=== PATIENT | female | born 1985 | race African-American/Black ===

== ENCOUNTER 2016-06-25 07:34 | Emergency (ER) | payer OTHER ==
--- NOTE | 2016-06-25 10:34 | ER Document Report ---
ED General - General Chief Complaint: Rectal Pain Stated Complaint: RECTAL PAIN Mode of Arrival: Ambulatory Information source: Patient Notes: 31-year-old female presents with complaints of internal hemorrhoids. Patient denies any fevers or chills nausea vomiting or diarrhea. Patient also notes vaginal bleeding which has been intermittent with large clots. TRAVEL OUTSIDE OF THE [place] IN LAST 30 DAYS: No - HPI Onset: Last week Onset/Duration: Intermittent Quality of pain: Burning Severity: Mild Pain Level: 1 Associated symptoms: None Exacerbated by: Other - Bowel movements Relieved by: Denies Similar symptoms previously: No Recently seen / treated by doctor: No - Related Data Allergies/Adverse Reactions: cetirizine [From Zyrtec] Allergy (Verified 06/25/16 08:01) penicillin G Allergy (Verified 06/25/16 08:01) penicillin V Allergy (Verified 06/25/16 08:01) Penicillins Allergy (Verified 06/25/16 08:01) pseudoephedrine [From Zyrtec-D] Allergy (Verified 06/25/16 08:01) Past Medical History - Social History Smoking Status: Current Every Day Smoker Cigarette use (# per day): Yes Chew tobacco use (# tins/day): No Smoking Education Provided: No Frequency of alcohol use: Rare Drug Abuse: None Family History: Reviewed & Not Pertinent Patient has suicidal ideation: No Patient has homicidal ideation: No Neurological Medical History: Reports: Hx Migraine Endocrine Medical History: Reports: Hx Diabetes Mellitus Type 2 Renal/ Medical History: Reports: Hx Pelvic Inflammatory Disease - being treated for chlamydia now. Denies: Hx Peritoneal Dialysis Psychiatric Medical History: Reports: Hx Anxiety, Hx Depression Past Surgical History: Reports: Hx Cholecystectomy - Immunizations Immunizations up to date: Yes Hx Diphtheria, Pertussis, Tetanus Vaccination: Yes - given today Review of Systems - Review of Systems Notes: REVIEW OF SYSTEMS: CONSTITUTIONAL : Denies fever, chills, or sweats. Denies recent illness. EENT: Denies eye, ear, throat, or mouth pain or symptoms. Denies nasal or sinus congestion or discharge. Denies throat, tongue, or mouth swelling or difficulty swallowing. CARDIOVASCULAR: Denies chest pain. Denies palpitations or racing or irregular heart beat. Denies ankle edema. RESPIRATORY: Denies cough, cold, or chest congestion. Denies shortness of breath, difficulty breathing, or wheezing. GASTROINTESTINAL: Denies abdominal pain or distention. Denies nausea, vomiting , or diarrhea. Denies blood in vomitus, stools, or per rectum. Denies black, tarry stools. Denies constipation. GENITOURINARY: Denies difficulty urinating, painful urination, burning, frequency, blood in urine, or discharge. FEMALE GENITOURINARY: Admits to vaginal bleeding MUSCULOSKELETAL: Admits to hemorrhoids SKIN: Denies rash, lesions or sores. HEMATOLOGIC : Denies easy bruising or bleeding. LYMPHATIC: Denies swollen, enlarged glands. NEUROLOGICAL: Denies confusion or altered mental status. Denies passing out or loss of consciousness. Denies dizziness or lightheadedness. Denies headache. Denies weakness or paralysis or loss of use of either side. Denies problems with gait or speech. Denies sensory loss, numbness, or tingling. Denies seizures. PSYCHIATRIC: Denies anxiety or stress. Denies depression, suicidal ideation, or homicidal ideation. ALL OTHER SYSTEMS REVIEWED AND NEGATIVE. Dictation was performed using [employer] voice recognition software PHYSICAL EXAMINATION: GENERAL: Well-appearing, well-nourished and in no acute distress. HEAD: Atraumatic, normocephalic. EYES: Pupils equal round and reactive to light, extraocular movements intact, conjunctiva are normal. ENT: Nares patent, oropharynx clear without exudates. Moist mucous membranes. NECK: Normal range of motion, supple without lymphadenopathy LUNGS: Breath sounds clear to auscultation bilaterally and equal. No wheezes rales or rhonchi. HEART: Regular rate and rhythm without murmurs ABDOMEN: Soft, nontender, nondistended abdomen. No guarding, no rebound. No masses appreciated. Female : deferred Musculoskeletal: Normal range of motion, no pitting or edema. No cyanosis. With nurse in room no external hemorrhoids noted NEUROLOGICAL: Cranial nerves grossly intact. Normal speech, normal gait. Normal sensory, motor exams PSYCH: Normal mood, normal affect. SKIN: Warm, Dry, normal turgor, no rashes or lesions noted. Physical Exam - Vital signs Vitals: Temp Pulse Resp BP Pulse Ox 98.1 F 106 H 20 133/83 H 99 06/25/16 07:59 06/25/16 07:59 06/25/16 07:59 06/25/16 07:59 06/25/16 07:59 Course - Re-evaluation Re-evalutation: 06/25/16 10:55 Patient vaginal bleeding appears to be secondary to her uterine fibroids as well as a change in her control pills from 2 weeks ago, patient is in no distress does not wish to be tested for . Patient will be given lidocaine topical She is otherwise well-appearing After performing a Medical Screening Examination, I estimate there is LOW risk for ACUTE APPENDICITIS, BOWEL OBSTRUCTION, ACUTE CHOLECYSTITIS, PERFORATED DIVERTICULITIS, INCARCERATED HERNIA, PANCREATITIS, PELVIC INFLAMMATORY DISEASE, PERFORATED ULCER, ECTOPIC , or TUBO-OVARIAN ABSCESS, thus I consider the discharge disposition reasonable. Also, there is no evidence or peritonitis , sepsis, or toxicity. The patient and I have discussed the diagnosis and risks , and we agree with discharging home with close follow-up with the understanding that symptoms and presentations can change. We also discussed returning to the Emergency Department immediately if new or worsening symptoms occur. We have discussed the symptoms which are most concerning (e.g., bloody stool, fever, changing or worsening pain, vomiting) that necessitate immediate return. - Vital Signs Vital signs: Temp Pulse Resp BP Pulse Ox 98.1 F 106 H 20 133/83 H 99 06/25/16 07:59 06/25/16 07:59 06/25/16 07:59 06/25/16 07:59 06/25/16 07:59 Discharge - Discharge Clinical Impression: Internal hemorrhoid, Vagina bleeding Condition: Stable Disposition: HOME, SELF-CARE Instructions: Hemorrhoids ([facility]) Prescriptions: Polyethylene Glycol 3350 [Miralax Powder 17 gm/Packet] 1 packet PO DAILY #7 pkg Referrals: KELVIN GAYLE MD [ACTIVE STAFF] - Follow up tomorrow
[2016-06-25] MEDS ORDERED: LIDOCAINE 4% TOPICAL SOLN 50 ML TOP ONE (10:53)
[2016-06-25 11:17] VITALS: BP 144/74
== END 2016-06-25 11:15 | disposition home or self-care (01) ==
LOC: ER 07:34
DX: K64.8 Other hemorrhoids (principal); N93.8 Other specified abnormal uterine and vaginal bleeding; F17.210 Nicotine dependence, cigarettes, uncomplicated; E11.9 Type 2 diabetes mellitus without complications; Z88.0 Allergy status to penicillin; Z90.49 Acquired absence of other specified parts of digestive tract
CPT/HCPCS: 99283; J3490

== ENCOUNTER 2016-07-02 04:34 | Emergency (ER) | payer OTHER ==
[2016-07-02] MEDS ORDERED: ACETAMINOPHEN 325 MG TABLET PO ONE (04:53)
[2016-07-02] MEDS ORDERED: HYDROCODONE/ACETAMINOPHEN 5-325 MG TABLET PO ONE (05:56)
--- NOTE | 2016-07-02 08:40 | ER Document Report ---
ED GI Bleed / Rectal Pain - General Mode of Arrival: Ambulatory Information source: Patient, [facility] Records TRAVEL OUTSIDE OF THE [place] IN LAST 30 DAYS: No - HPI Patient complains to provider of: Hemorrhoids Onset: Other - 06/25/2016 Timing/Duration: Sudden, Worse Quality of pain: Sharp Associated symptoms: None. denies: Constipation Exacerbated by: Other - Bowel movements <SAMEER POSEY - Last Filed: 07/02/16 10:05> <LIZETT LONGO - Last Filed: 07/02/16 10:25> - General Chief Complaint: Rectal Pain Stated Complaint: POSSIBLE FEVER CHILLS Notes: Patient is a 31-year-old female presenting to the emergency department with chief complaint rectal pain that has worsened since the last time she came to the emergency department, 06/25/2016. Patient was told that she most likely had internal hemorrhoids the last time she came in, but now she states that it feels like there are external hemorrhoids. Patient denies any constipation or any other symptoms. Patient states that she has a history of hemorrhoids after giving . (SAMEER POSEY) - Related Data Allergies/Adverse Reactions: cetirizine [From Zyrtec] Allergy (Verified 06/25/16 08:01) penicillin G Allergy (Verified 06/25/16 08:01) penicillin V Allergy (Verified 06/25/16 08:01) Penicillins Allergy (Verified 06/25/16 08:01) pseudoephedrine [From Zyrtec-D] Allergy (Verified 06/25/16 08:01) Past Medical History - General Information source: Patient, [facility] Records - Social History Smoking Status: Current Every Day Smoker Chew tobacco use (# tins/day): No Frequency of alcohol use: Social Drug Abuse: None Family History: Reviewed & Not Pertinent Patient has suicidal ideation: No Patient has homicidal ideation: No Neurological Medical History: Reports: Hx Migraine Endocrine Medical History: Reports: Hx Diabetes Mellitus Type 2 Renal/ Medical History: Reports: Hx Pelvic Inflammatory Disease - being treated for chlamydia now. Denies: Hx Peritoneal Dialysis Psychiatric Medical History: Reports: Hx Anxiety, Hx Depression Past Surgical History: Reports: Hx Cholecystectomy - Immunizations Immunizations up to date: Yes Hx Diphtheria, Pertussis, Tetanus Vaccination: Yes - given today <SAMEER POSEY - Last Filed: 07/02/16 10:05> Review of Systems - Review of Systems Constitutional: No symptoms reported EENT: No symptoms reported Cardiovascular: No symptoms reported Respiratory: No symptoms reported Gastrointestinal: See HPI, Other - Rectal pain Genitourinary: No symptoms reported Female Genitourinary: No symptoms reported Musculoskeletal: No symptoms reported Skin: No symptoms reported Hematologic/Lymphatic: No symptoms reported Neurological/Psychological: No symptoms reported -: Yes All other systems reviewed and negative <SAMEER POSEY - Last Filed: 07/02/16 10:05> Physical Exam - General General appearance: Appears well, Alert - HEENT Head: Normocephalic, Atraumatic Eyes: Normal Pupils: PERRL - Respiratory Respiratory status: No respiratory distress Chest status: Nontender Breath sounds: Normal Chest palpation: Normal - Cardiovascular Rhythm: Regular Heart sounds: Normal auscultation Murmur: No - Abdominal Inspection: Obese Bowel sounds: Normal Tenderness: Nontender - Rectal Hemorrhoids: External - bulging abscess 2 cm x 3/4 cm, white, at the top of the anus, very tender - Back Back: Normal, Nontender - Extremities General upper extremity: Normal inspection, Nontender General lower extremity: Normal inspection, Nontender - Neurological Neuro grossly intact: Yes Cognition: Normal Sadaf Coma Scale Eye Opening: Spontaneous [place] Coma Scale Verbal: Oriented [place] Coma Scale Motor: Obeys Commands [place] Coma Scale Total: 15 Speech: Normal - Psychological Associated symptoms: Normal affect, Normal mood - Skin Skin Temperature: Warm Skin Moisture: Dry Skin Color: Normal <SAMEER POSEY - Last Filed: 07/02/16 10:05> Procedures <SAMEER POSEY - Last Filed: 07/02/16 10:05> - Incision and Drainage Buttock Time completed: 10:05 Type: Simple Anesthetic type: 1% Lidocaine mL's of anesthetic: 4 Blade size: 11 I&D procedure: Shurclens applied Incision Method: Incision made by scalpel Amount/type of drainage: 3 ml pus <LIZETT LONGO - Last Filed: 07/02/16 10:25> - Incision and Drainage Buttock Notes: 07/02/16 10:19 Irrigated with 10 mL's normal saline (LIZETT LONGO) Discharge <SAMEER POSEY - Last Filed: 07/02/16 10:05> <LIZETT LONGO - Last Filed: 07/02/16 10:25> - Discharge Clinical Impression: Abscess of buttock Condition: Stable Disposition: HOME, SELF-CARE Additional Instructions: Abscess: You have an abscess (boil). This a pus-forming infection, usually due to staph. Some boils may be left to drain on their own, but most require lancing. From the time the tender lump first appears, it may be three or four days before the abscess is ready to alix. Local heat and rest help at this stage of treatment. An antibiotic may prevent spread of the infection. Depending on the size and location of an abscess, healing can take one to four weeks. You may shower and wash the area around the incision site two or three times a day. Antibiotics may be prescribed, but are usually not necessary after an abscess has been drained. If you develop fever, chilling, worsening pain, or increasing swelling in the area, call the doctor or return immediately. TAKE THE MEDICATION PRESCRIBED. SOAK IN A WARM TUB OF WATER A FEW TIMES DAILY. FOLLOW UP WITH YOUR DOCTOR OR [facility]. RETURN TO THE EMERGENCY ROOM IF ANY NEW OR WORSENING SYMPTOMS. Prescriptions: Doxycycline Hyclate 100 mg PO BID #10 tablet Oxycodone HCl/Acetaminophen [Percocet 5-325 mg Tablet] 1 - 2 tab PO ASDIR PRN # 15 tablet PRN Reason: Referrals: [facility] [Provider Group] - Follow up as needed Scribe Attestation: 07/02/16 10:25 I personally performed the services described in the documentation, reviewed and edited the documentation which was dictated to the scribe in my presence, and it accurately records my words and actions. (LIZETT LONGO) Scribe Documentation - Scribe Written by Maeve:: Sameer Posey 07/02/2016 0840 acting as scribe for :: Igor <SAMEER POSEY - Last Filed: 07/02/16 10:05>
[2016-07-02] MEDS ORDERED: ONDANSETRON 4 MG TAB.RAPDIS PO ONE (08:41)
[2016-07-02] MEDS ORDERED: LIDOCAINE 1% INJ-PF (10 MG/ML) 30 ML SDV INJ ONE (08:41)
[2016-07-02] MEDS ORDERED: MORPHINE SULFATE 10 MG/ML INJ IM ONE (08:41)
[2016-07-02 10:42] VITALS: BP 124/71
== END 2016-07-02 10:39 | disposition home or self-care (01) ==
LOC: ER 04:34
PROC: 0H98XZZ Drainage of Buttock Skin, External Approach (ICD-10-PCS; principal; 2016-07-02)
DX: L02.31 Cutaneous abscess of buttock (principal); K62.89 Other specified diseases of anus and rectum; F17.200 Nicotine dependence, unspecified, uncomplicated
CPT/HCPCS: 99283; 96372; 87070; 87205; 87075; 87077; 87186; 10060; S0119; J3490; J2270

== ENCOUNTER 2017-03-22 18:05 | Emergency (ER) | payer OTHER, MEDICAID ==
--- NOTE | 2017-03-22 19:28 | ER Document Report ---
ED GI/ - General Chief Complaint: Vag Bleeding, +preg <12wks Stated Complaint: ABDOMINAL PAIN,VAGINAL BLEEDING Time Seen by Provider: 03/22/17 19:21 Notes: Patient is a 32-year-old female, at 5-6 weeks gestation by last menstrual period, the comes emergency department for chief complaint of 2 days of lower abdominal/pelvic cramping and today she started having vaginal bleeding and spotting. She denies any severe pain, fever, dizziness, vomiting. She denies abnormal discharge, dysuria, flank pain. Only past medical history reported is cholecystectomy. Only medication is vitamins. TRAVEL OUTSIDE OF THE [place] IN LAST 30 DAYS: No - Related Data Allergies/Adverse Reactions: cetirizine [From Zyrtec] Allergy (Verified 03/22/17 18:53) penicillin G Allergy (Verified 03/22/17 18:53) penicillin V Allergy (Verified 03/22/17 18:53) Penicillins Allergy (Verified 03/22/17 18:53) pseudoephedrine [From Zyrtec-D] Allergy (Verified 03/22/17 18:53) Past Medical History - General Information source: Patient Last Menstrual Period: 02-12-17 - Social History Smoking Status: Current Some Day Smoker Chew tobacco use (# tins/day): No Frequency of alcohol use: None Drug Abuse: None Lives with: Family Family History: Reviewed & Not Pertinent Patient has suicidal ideation: No Patient has homicidal ideation: No Neurological Medical History: Reports: Hx Migraine Endocrine Medical History: Reports: Hx Diabetes Mellitus Type 2 Renal/ Medical History: Reports: Hx Pelvic Inflammatory Disease - being treated for chlamydia now. Denies: Hx Peritoneal Dialysis Psychiatric Medical History: Reports: Hx Anxiety, Hx Depression Past Surgical History: Reports: Hx Cholecystectomy - Immunizations Immunizations up to date: Yes Hx Diphtheria, Pertussis, Tetanus Vaccination: Yes - given today Review of Systems - Review of Systems Constitutional: No symptoms reported EENT: No symptoms reported Cardiovascular: No symptoms reported Respiratory: No symptoms reported Gastrointestinal: See HPI Genitourinary: See HPI Female Genitourinary: See HPI Musculoskeletal: No symptoms reported Skin: No symptoms reported Hematologic/Lymphatic: No symptoms reported Neurological/Psychological: No symptoms reported Physical Exam - Vital signs Vitals: Temp Pulse Resp BP Pulse Ox 98.3 F 109 H 18 129/78 H 99 03/22/17 18:25 03/22/17 18:25 03/22/17 18:25 03/22/17 18:25 03/22/17 18:25 Interpretation: Normal - General General appearance: Appears well, Alert In distress: None - Alert, smiling, talkative, well-appearing - HEENT Head: Normocephalic, Atraumatic Eyes: Normal Conjunctiva: Normal Extraocular movements intact: Yes Eyelashes: Normal Pupils: PERRL Nasal: Normal Mouth/Lips: Normal Mucous membranes: Normal Pharynx: Normal Neck: Normal - Respiratory Respiratory status: No respiratory distress Chest status: Nontender Breath sounds: Normal. No: Decreased air movement, Wheezing Chest palpation: Normal - Cardiovascular Rhythm: Regular. No: Tachycardia Heart sounds: Normal auscultation, S1 appreciated, S2 appreciated Murmur: No - Abdominal Inspection: Normal Distension: No distension Bowel sounds: Normal Tenderness: Tender - There is some tenderness over the suprapubic area, mild, no guarding, abdomen soft and benign otherwise. No: McBurney's point, Hudson's sign, Guarding - Back Back: Normal, Nontender. No: Tender, CVA tenderness - Extremities General upper extremity: Normal inspection, Nontender, Normal color, Normal ROM , Normal temperature General lower extremity: Normal inspection, Nontender, Normal color, Normal ROM , Normal temperature, Normal weight bearing. No: Tom's sign - Neurological Neuro grossly intact: Yes Cognition: Normal Orientation: AAOx4 [place] Coma Scale Eye Opening: Spontaneous [place] Coma Scale Verbal: Oriented Sadaf Coma Scale Motor: Obeys Commands Sadaf Coma Scale Total: 15 Speech: Normal Motor strength normal: LUE, RUE, LLE, RLE Sensory: Normal - Psychological Associated symptoms: Normal affect, Normal mood - Skin Skin Temperature: Warm Skin Moisture: Dry Skin Color: Normal Course - Re-evaluation Re-evalutation: Patient is well-appearing, she is denying any current complaints, vital signs unremarkable, on my examination patient does not have any tachycardia. No hypotension or fever. Abdominal exam does show some suprapubic tenderness but no guarding, unremarkable exam otherwise. CBC shows mild leukocytosis, chemistry generally unremarkable, blood type is A+ , hCG is elevated as expected. Ultrasound showing what appears to be early intrauterine . No obvious abnormalities at this time. Discussed with patient. Discussed that this still could be early miscarriage although this needs to be trended. Patient will be prescribed a repeat beta-hCG which she is to get in 2-3 days, patient states she has already established follow-up with OB /[facility]. Urinalysis showing infection. Culture placed. Placing on Keflex. Patient continues to be well-appearing on reexamination, asking to leave. Discharged with all instructions and with return precautions. Patient states understanding and agreement. - Vital Signs Vital signs: Temp Pulse Resp BP Pulse Ox 98.5 F 101 H 18 117/99 H 98 03/22/17 22:23 03/22/17 22:23 03/22/17 22:23 03/22/17 22:23 03/22/17 22:23 - Laboratory Result Diagrams: 03/22/17 19:45 Laboratory results interpreted by me: 03/22/17 03/22/17 03/22/17 18:50 19:45 19:45 WBC 12.8 H Absolute Neutrophils 8.8 H Beta HCG, Quant 47530.00 H Urine Protein 100 H Urine Blood LARGE H Ur Leukocyte Esterase LARGE H Discharge - Discharge Clinical Impression: Vaginal bleeding affecting early Abdominal pain Qualifiers: Abdominal location: lower abdomen, unspecified Qualified Code(s): R10.30 - Lower abdominal pain, unspecified Condition: Stable Disposition: HOME, SELF-CARE Additional Instructions: Your ultrasound shows a in the uterus, no additional details identified at this time. The exact cause of your bleeding is uncertain, please follow-up precautions including no lifting, running, jumping, or intercourse until cleared by [facility]. You have been given a prescription to have a 2-3 day repeat hormone (beta-hCG) test performed to help monitor this . Call the number to have this test time confirmed to be performed. Follow-up closely with [facility] for additional evaluation and treatment. You have a urinary tract infection, please take the Keflex antibiotics as prescribed to completion. Take the Zofran if needed for nausea. Return if you worsen including fever, vomiting, severe abdominal pain, heavy bleeding, passing out, or any other concerning symptoms. Prescriptions: Cephalexin Monohydrate [Keflex 500 mg Capsule] 500 mg PO QID #20 capsule Ondansetron [Zofran Odt 4 mg Tablet] 1 - 2 tab PO Q4H PRN #20 tab.rapdis PRN Reason: For Nausea/Vomiting Forms: Follow-Up Laboratory Testing
[2017-03-22 19:50] LABS: AMORPHOUS SEDIMENT,URINE TRACE /HPF; APPEARANCE,URINE CLOUDY; BILIRUBIN,URINE NEGATIVE (NEGATIVE); GLUCOSE, URINE NEGATIVE (NEGATIVE); KETONES,URINE NEGATIVE (NEGATIVE); LEUKOCYTE ESTERASE,URINE LARGE (NEGATIVE); NITRITE,URINE NEGATIVE (NEGATIVE); PROTEIN,URINE 100 mg/dL (NEGATIVE); URINE SPECIFIC GRAVITY 1.028; UROBILINOGEN,URINE NEGATIVE mg/dL (<2.0)
[2017-03-22 20:00] LABS: ABSOLUTE BASOPHILS # (AUTO) 0.1 10^3/uL (0.0-0.2); ABSOLUTE EOSINOPHILS # (AUTO) 0.2 10^3/uL (0.0-0.6); ABSOLUTE MONOCYTES (AUTO) 0.7 10^3/uL (0.1-1.4); ABSOLUTE NEUT (AUTO) 8.8 10^3/uL (1.7-8.2); BASOPHILS % (AUTO) 0.7 % (0-2); EOSINOPHILS % (AUTO) 1.5 % (0-6); HEMATOCRIT 38.2 % (36.0-47.0); HEMOGLOBIN 13.2 g/dL (12.0-15.5); HGB HCT DIFFERENCE 1.4; LYMPHOCYTES % (AUTO) 23.5 % (13-45); MEAN CORPUSCULAR HEMOGLOBIN 29.8 pg (27.0-33.4); MEAN CORPUSCULAR HGB CONC 34.5 g/dL (32.0-36.0); MEAN CORPUSCULAR VOLUME 87 fl (80-97); MONOCYTES % (AUTO) 5.6 % (3-13); RED BLOOD COUNT 4.42 10^6/uL (3.72-5.28); RED CELL DISTRIBUTION WIDTH 13.3 % (11.5-14.0); SEGMENTED NEUTROPHILS % (AUTO) 68.7 % (42-78); WHITE BLOOD COUNT 12.8 10^3/uL (4.0-10.5)
--- NOTE | 2017-03-22 21:18 | RADIOLOGY REPORT (SQ) ---
EXAM DESCRIPTION: U/S OB TRANSVAGINAL W/O DOP COMPLETED DATE/TIME: 03/22/2017 9:01 pm REASON FOR STUDY: +HCG, pelvic pain, vaginal bleeding COMPARISON: None. TECHNIQUE: Transvaginal static and realtime grayscale images acquired of the pelvis. Additional carrie cted spectral and color Doppler images recorded. All images stored on PACs. bHCG: Not available. LIMITATIONS: None. FINDINGS: UTERUS: No masses. No anomalies. GESTATIONAL SAC: Intrauterine gestational sac. Measurements correspond to a 6 week 5 day gestation. YOLK SAC: Yes. POLE: No. RIGHT ADNEXA: Normal ovary with normal vascular flow. No adnexal free fluid. No adnexal masses. LEFT ADNEXA: Normal ovary with normal vascular flow. No adnexal free fluid. No adnexal masses. FREE FLUID: None. OTHER: No other significant finding. IMPRESSION: POSSIBLE EARLY INTRAUTERINE . BHCG LEVEL NOT AVAILABLE FOR CORRELATION WITH US FINDINGS. CONSIDER F/U BHCG AND/OR ULTRASOUND FOR VERIFICATION AND TO EXCLUDE ECTOPIC . Trimester of : First - 0 to 13 weeks. TECHNICAL DOCUMENTATION: JOB ID: [id number] [employer]- All Rights Reserved
[2017-03-22] MEDS ORDERED: ONDANSETRON ODT 4 MG TAB (6 TAB/DSPK) PO PRN (22:07)
[2017-03-22] MEDS ORDERED: CEPHALEXIN 500 MG CAPSULE PO ONE (22:07)
[2017-03-22 22:24] VITALS: BP 117/99
== END 2017-03-22 22:32 | disposition home or self-care (01) ==
LOC: ER 18:05
DX: O46.91 Antepartum hemorrhage, unspecified, first trimester (principal); Z3A.01 Less than 8 weeks gestation of pregnancy; R10.30 Lower abdominal pain, unspecified; R10.2 Pelvic and perineal pain; F17.200 Nicotine dependence, unspecified, uncomplicated
CPT/HCPCS: 36415; 76817; 81001; 84702; 85025; 86900; 86901; 87086; 99284

== ENCOUNTER 2017-06-11 18:26 | Emergency (ER) | payer OTHER, MEDICAID ==
--- NOTE | 2017-06-11 19:00 | ER Document Report ---
ED Medical Screen (RME) - General Chief Complaint: Flu Symptoms Stated Complaint: FLU SYMPTOMS Time Seen by Provider: 06/11/17 18:55 Mode of Arrival: Ambulatory Information source: Patient TRAVEL OUTSIDE OF THE [place] IN LAST 30 DAYS: No - HPI Patient complains to provider of: flu symptoms Onset: This morning - pt. started earlier today with cough, congestion, generalized arthralgias and myalgias. Denies fever. Is not sure if she had a flu shot this year. - Related Data Allergies/Adverse Reactions: cetirizine [From Zyrtec] Allergy (Verified 06/11/17 18:28) penicillin G Allergy (Verified 06/11/17 18:28) penicillin V Allergy (Verified 06/11/17 18:28) Penicillins Allergy (Verified 06/11/17 18:28) pseudoephedrine [From Zyrtec-D] Allergy (Verified 06/11/17 18:28) Past Medical History Neurological Medical History: Reports: Hx Migraine Endocrine Medical History: Reports: Hx Diabetes Mellitus Type 2 Renal/ Medical History: Reports: Hx Pelvic Inflammatory Disease - being treated for chlamydia now. Denies: Hx Peritoneal Dialysis Psychiatric Medical History: Reports: Hx Anxiety, Hx Depression Past Surgical History: Reports: Hx Cholecystectomy - Immunizations Immunizations up to date: Yes Hx Diphtheria, Pertussis, Tetanus Vaccination: Yes - given today Physical Exam - Vital signs Vitals: Temp Pulse Resp BP Pulse Ox 99.3 F 131 H 28 H 130/80 H 97 06/11/17 18:50 06/11/17 18:50 06/11/17 18:50 06/11/17 18:50 06/11/17 18:50 Course - Vital Signs Vital signs: Temp Pulse Resp BP Pulse Ox 99.3 F 131 H 28 H 130/80 H 97 06/11/17 18:50 06/11/17 18:50 06/11/17 18:50 06/11/17 18:50 06/11/17 18:50
[2017-06-11 19:29] LABS: ABSOLUTE EOSINOPHILS # (AUTO) 0.1 10^3/uL (0.0-0.6); ABSOLUTE LYMPHOCYTES (AUTO) 1.4 10^3/uL (0.5-4.7); ABSOLUTE MONOCYTES (AUTO) 0.7 10^3/uL (0.1-1.4); ABSOLUTE NEUT (AUTO) 8.8 10^3/uL (1.7-8.2); BASOPHILS % (AUTO) 0.4 % (0-2); EOSINOPHILS % (AUTO) 1.2 % (0-6); HEMATOCRIT 34.3 % (36.0-47.0); HEMOGLOBIN 11.5 g/dL (12.0-15.5); LYMPHOCYTES % (AUTO) 12.9 % (13-45); MEAN CORPUSCULAR HGB CONC 33.5 g/dL (32.0-36.0); MEAN CORPUSCULAR VOLUME 87 fl (80-97); MONOCYTES % (AUTO) 6.7 % (3-13); PLATELET COUNT 307 10^3/uL (150-450); RED BLOOD COUNT 3.97 10^6/uL (3.72-5.28); RED CELL DISTRIBUTION WIDTH 13.6 % (11.5-14.0); SEGMENTED NEUTROPHILS % (AUTO) 78.8 % (42-78); TOTAL CELLS COUNTED % (AUTO) 100 %; WHITE BLOOD COUNT 11.2 10^3/uL (4.0-10.5)
[2017-06-11 19:39] LABS: BILIRUBIN,URINE NEGATIVE (NEGATIVE); COLOR,URINE YELLOW; GLUCOSE, URINE NEGATIVE (NEGATIVE); KETONES,URINE NEGATIVE (NEGATIVE); LEUKOCYTE ESTERASE,URINE TRACE (NEGATIVE); NITRITE,URINE NEGATIVE (NEGATIVE); PROTEIN,URINE NEGATIVE (NEGATIVE); URINE SPECIFIC GRAVITY 1.006; UROBILINOGEN,URINE NEGATIVE mg/dL (<2.0)
[2017-06-11 19:40] LABS: APPEARANCE,URINE SLIGHTLY HAZY
[2017-06-11 19:42] LABS: ALANINE AMINOTRANSFERASE 31 U/L (9-52); ALBUMIN 3.4 g/dL (3.5-5.0); ALKALINE PHOSPHATASE 75 U/L (38-126); ANION GAP 8 (5-19); ASPARTATE AMINO TRANSFERASE 23 U/L (14-36); BILIRUBIN,DIRECT 0.2 mg/dL (0.0-0.4); BILIRUBIN,TOTAL 0.2 mg/dL (0.2-1.3); BLOOD UREA NITROGEN 5 mg/dL (7-20); CALCIUM 9.6 mg/dL (8.4-10.2); CARBON DIOXIDE 22 mmol/L (22-30); CHLORIDE 107 mmol/L (98-107); GLUCOSE 116 mg/dL (75-110); POTASSIUM 3.6 mmol/L (3.6-5.0); TOTAL PROTEIN 6.7 g/dL (6.3-8.2)
[2017-06-11] MEDS ORDERED: NITROFURANTOIN MONOHYD/M-CRYST 100 MG CAPSULE PO ONE (20:07)
--- NOTE | 2017-06-11 20:15 | ER Document Report ---
ED Flu Like - General Chief Complaint: Flu Symptoms Stated Complaint: FLU SYMPTOMS Time Seen by Provider: 06/11/17 18:55 Mode of Arrival: Ambulatory Notes: 32-year-old female presents to ED for complaint of cough congestion generalized body aches with no fever. She states she does not know she got flu shot or not. She is 17 weeks . She is 3 para 2. She denies urinary pain but she states she has had urinary frequency and thought that was just from her . TRAVEL OUTSIDE OF THE [place] IN LAST 30 DAYS: No - HPI Onset: This morning Timing/Duration: Intermittent Quality of pain: Achy Severity: Moderate Pain Level: 3 Associated symptoms: Body/muscle aches, Nonproductive cough, Nausea, Rhinnorhea , Sinus pain/drainage, Other - Urinary frequency Similar symptoms previously: Yes Recently seen / treated by doctor: Yes - Related Data Allergies/Adverse Reactions: cetirizine [From Zyrtec] Allergy (Verified 06/11/17 18:57) penicillin G Allergy (Verified 06/11/17 18:57) penicillin V Allergy (Verified 06/11/17 18:57) Penicillins Allergy (Verified 06/11/17 18:57) pseudoephedrine [From Zyrtec-D] Allergy (Verified 06/11/17 18:57) Past Medical History - General Information source: Patient - Social History Smoking Status: Current Every Day Smoker Cigarette use (# per day): Yes - 1 cigarette a day Chew tobacco use (# tins/day): No Smoking Education Provided: Yes - 4 minutes Frequency of alcohol use: None Drug Abuse: None Lives with: Friend Family History: Reviewed & Not Pertinent Patient has suicidal ideation: No Patient has homicidal ideation: No - Past Medical History Cardiac Medical History: Reports: None Pulmonary Medical History: Reports: None EENT Medical History: Reports: None Neurological Medical History: Reports: Hx Migraine Endocrine Medical History: Reports: Hx Diabetes Mellitus Type 2 - Gestational diabetes Renal/ Medical History: Reports: Hx Pelvic Inflammatory Disease Malignancy Medical History: Reports: None GI Medical History: Reports: None Musculoskeltal Medical History: Reports None Skin Medical History: Reports None Psychiatric Medical History: Reports: Hx Anxiety, Hx Depression Traumatic Medical History: Reports: None Infectious Medical History: Reports: None Past Surgical History: Reports: Hx Cholecystectomy - Immunizations Immunizations up to date: Yes Hx Diphtheria, Pertussis, Tetanus Vaccination: Yes - given today Review of Systems - Review of Systems Constitutional: Recent illness EENT: Nose discharge, Sinus pressure, Sinus discharge Cardiovascular: No symptoms reported Respiratory: Cough Gastrointestinal: Nausea Genitourinary: Frequency. denies: Burning, Dysuria, Discharge Female Genitourinary: Musculoskeletal: Other - Body aches Skin: No symptoms reported Hematologic/Lymphatic: No symptoms reported Neurological/Psychological: No symptoms reported -: Yes All other systems reviewed and negative Physical Exam - Vital signs Vitals: Temp Pulse Resp BP Pulse Ox 99.3 F 131 H 28 H 130/80 H 97 06/11/17 18:50 06/11/17 18:50 06/11/17 18:50 06/11/17 18:50 06/11/17 18:50 Interpretation: Normal - General General appearance: Appears well, Alert - HEENT Head: Normocephalic, Atraumatic Eyes: Normal Pupils: PERRL Ears: Normal External canal: Normal Tympanic membrane: Normal Sinus: Normal Nasal: Purulent discharge, Swelling Mouth/Lips: Normal Mucous membranes: Normal Pharynx: Post nasal drainage Neck: Normal - Respiratory Respiratory status: No respiratory distress Chest status: Nontender Breath sounds: Normal Chest palpation: Normal - Cardiovascular Rhythm: Regular Heart sounds: Normal auscultation Murmur: No - Abdominal Inspection: Gravid female Distension: No distension Bowel sounds: Normal Tenderness: Nontender Organomegaly: No organomegaly - Back Back: Normal, Nontender - Extremities General upper extremity: Normal inspection, Nontender, Normal color, Normal ROM , Normal temperature General lower extremity: Normal inspection, Nontender, Normal color, Normal ROM , Normal temperature, Normal weight bearing. No: Tom's sign - Neurological Neuro grossly intact: Yes Cognition: Normal Orientation: AAOx4 [place] Coma Scale Eye Opening: Spontaneous Sadaf Coma Scale Verbal: Oriented Sadaf Coma Scale Motor: Obeys Commands Sadaf Coma Scale Total: 15 Speech: Normal Motor strength normal: LUE, RUE, LLE, RLE Sensory: Normal - Psychological Associated symptoms: Normal affect, Normal mood - Skin Skin Temperature: Warm Skin Moisture: Dry Skin Color: Normal Course - Re-evaluation Re-evalutation: 06/11/17 20:48 Patient taking fluids well. Pulse 110 at discharge. Pedal edema bilaterally. Patient states this is been going on while she was . Patient has a cough and cold symptoms. Lungs clear to auscultation denies any fevers. Will discharge home with encouragement to drink increased fluid intake and prescription for Macrobid. Patient was treated with Macrobid in the emergency room. - Vital Signs Vital signs: Temp Pulse Resp BP Pulse Ox 98.5 F 114 H 18 123/73 100 06/11/17 20:18 06/11/17 20:18 06/11/17 20:18 06/11/17 20:18 06/11/17 20:18 - Laboratory Result Diagrams: 06/11/17 19:10 06/11/17 19:10 Laboratory results interpreted by me: 06/11/17 06/11/17 06/11/17 19:00 19:10 19:10 WBC 11.2 H Hgb 11.5 L Hct 34.3 L Seg Neutrophils % 78.8 H Lymphocytes % 12.9 L Absolute Neutrophils 8.8 H BUN 5 L Creatinine 0.50 L Glucose 116 H Albumin 3.4 L Ur Leukocyte Esterase TRACE H Discharge - Discharge Clinical Impression: URI (upper respiratory infection) Qualifiers: URI type: unspecified URI Qualified Code(s): J06.9 - Acute upper respiratory infection, unspecified UTI (urinary tract infection) during Qualifiers: Trimester: second trimester Qualified Code(s): O23.42 - Unspecified infection of urinary tract in , second trimester Condition: Stable Disposition: HOME, SELF-CARE Additional Instructions: UPPER RESPIRATORY ILLNESS: You have a viral infection of the respiratory passages -- a "cold." This common infection causes nasal congestion, drainage, and often sore throat and cough. It is highly contagious. The disease usually lasts about 10 to 14 days. There is no "cure" for the viral infection -- it must run its course. If there is a complication, such as bacterial infection in the nose, sinuses, middle ear, or bronchial tubes, antibiotics may be required. The antibiotics won't affect the virus. Drink plenty of fluids. A humidifier may help. An expectorant medication or decongestant may make you more comfortable. Use acetaminophen or ibuprofen for fever or aches. See the doctor if fever persists over two days, if there is any significant worsening of your symptoms, or if you simply fail to improve as expected. URINARY TRACT INFECTION: Your evaluation indicates that you have a urinary tract infection. This is due to germs growing in the bladder. This is a common problem. This infection usually responds quickly to antibiotics. Your antibiotic should be taken exactly as prescribed. Drink plenty of fluids -- three to four quarts a day. Occasionally, a bladder anesthetic will be prescribed to help stop the feeling of urgency until the antibiotic has a chance to clear the infection. This may cause your urine to be dark orange. Certain urine infections require a culture. If the doctor obtained a culture, the results will be back in two days. You should call to see if a change in treatment is needed. A repeat urinalysis after you finish treatment is often recommended. The physician will let you know if further testing is required. Call the doctor if you develop fever, chills, flank pain, inability to urinate, or blood in the urine. NITROFURANTOIN (MACRODANTIN, MACROBID): You have received a prescription for nitrofurantoin (Macrodantin). This antibiotic is used for urinary tract infections. Women who are or nursing should notify the physician before taking this medicine. If you have ever had a problem caused by this medication in the past, be sure the physician is aware of it. Common side effects of this medicine include nausea, vomiting, or decreased appetite. Notify your physician if these side effects become severe. Immediately stop this medicine and call the physician if you develop cough , shortness of breath, chest pain, weakness, jaundice (yellow color of the skin and whites of the eyes), or a skin rash. SMOKING: If you smoke, you should stop smoking. The tar and chemicals in cigarette smoke are harmful. Smoking has been shown to cause: emphysema chronic bronchitis lung cancer mouth and throat cancer stomach and pancreas cancer premature aging defects In addition, smoking increases ear and lung infections in children of smokers. FOLLOW-UP CARE: If you have been referred to a physician for follow-up care, call the physician s office for an appointment as you were instructed or within the next two days. If you experience worsening or a significant change in your symptoms, notify the physician immediately or return to the Emergency Department at any time for re-evaluation. Prescriptions: Nitrofurantoin/Nitrofuran Mac [Macrobid 100 mg Capsule] 1 tab PO BID #20 capsule Forms: Elevated Blood Pressure, Smoking Cessation Education Referrals: FELA AVILES PA-C [Primary Care Provider] - Follow up as needed
[2017-06-11 20:27] VITALS: BP 123/73
== END 2017-06-11 20:54 | disposition home or self-care (01) ==
LOC: ER 18:26
DX: O99.512 Diseases of the respiratory system complicating pregnancy, second trimester (principal); J06.9 Acute upper respiratory infection, unspecified; J34.89 Other specified disorders of nose and nasal sinuses; O23.42 Unspecified infection of urinary tract in pregnancy, second trimester; O26.892 Other specified pregnancy related conditions, second trimester; R05 Cough; R09.82 Postnasal drip; R11.0 Nausea; O12.02 Gestational edema, second trimester; O99.332 Smoking (tobacco) complicating pregnancy, second trimester; F17.210 Nicotine dependence, cigarettes, uncomplicated; Z71.6 Tobacco abuse counseling; Z3A.17 17 weeks gestation of pregnancy; Z88.0 Allergy status to penicillin; Z88.8 Allergy status to other drugs, medicaments and biological substances
CPT/HCPCS: 99283; 36415; 87086; 85025; 80053; 81001; J8499

== ENCOUNTER 2017-07-26 11:42 | Outpatient (CLI) | payer OTHER, MEDICAID ==
[2017-07-26 13:04] LABS: APPEARANCE,URINE CLOUDY; BILIRUBIN,URINE NEGATIVE (NEGATIVE); COLOR,URINE YELLOW; GLUCOSE, URINE NEGATIVE (NEGATIVE); KETONES,URINE NEGATIVE (NEGATIVE); LEUKOCYTE ESTERASE,URINE SMALL (NEGATIVE); NITRITE,URINE NEGATIVE (NEGATIVE); PROTEIN,URINE 30 mg/dL (NEGATIVE); URINE SPECIFIC GRAVITY 1.024; UROBILINOGEN,URINE NEGATIVE mg/dL (<2.0)
[2017-07-26 13:16] LABS: URINE AMPHETAMINES SCREEN NEGATIVE; URINE BARBITURATES SCREEN NEGATIVE; URINE BENZODIAZEPINES SCREEN NEGATIVE; URINE COCAINE SCREEN NEGATIVE; URINE MARIJUANA (THC) SCREEN NEGATIVE; URINE METHADONE SCREEN NEGATIVE; URINE PHENCYCLIDINE SCREEN NEGATIVE
--- NOTE | 2017-07-26 14:21 | RADIOLOGY REPORT (SQ) ---
EXAM DESCRIPTION: U/S OB LIMITED COMPLETED DATE/TIME: 07/26/2017 2:07 pm REASON FOR STUDY: CERVICAL LENGTH COMPARISON: 03/22/2017 TECHNIQUE: Limited transabdominal grayscale ultrasound for evaluation of specific requested obstetri lola parameters. LIMITATIONS: None. FINDINGS: CERVICAL LENGTH: 3.6 Closed. FHR: 162 beats per minute. PRESENTATION: Breech orientation IMPRESSION: Cervix closed, 3.6 cm in length Breech orientation Trimester of : Second trimester - 13 weeks 1 day to 27 weeks 6 days. TECHNICAL DOCUMENTATION: JOB ID: [id number] [employer]- All Rights Reserved Reading location - IP/workstation name: [email or web address]
== END 2017-07-26 14:27 | disposition home or self-care (01) ==
LOC: LC 11:42
PROVIDERS: ATTEND Obstetrics & Gynecology
PROC: 4A1HXCZ Monitoring of Products of Conception, Cardiac Rate, External Approach (ICD-10-PCS; principal; 2017-07-26)
DX: O60.02 Preterm labor without delivery, second trimester (principal); Z3A.23 23 weeks gestation of pregnancy
CPT/HCPCS: 76815; 80307; 81001

== ENCOUNTER 2017-09-29 11:11 | Outpatient (CLI) | payer OTHER, MEDICAID | END 2017-09-29 11:44 | disposition home or self-care (01) | LOC: LC 11:11 | PROVIDERS: ATTEND Obstetrics & Gynecology Gynecology | PROC: 4A1HXCZ Monitoring of Products of Conception, Cardiac Rate, External Approach (ICD-10-PCS; principal; 2017-09-29) | DX: O24.414 Gestational diabetes mellitus in pregnancy, insulin controlled (principal); Z3A.32 32 weeks gestation of pregnancy | CPT/HCPCS: 59025 ==

== ENCOUNTER 2017-10-06 12:28 | Outpatient (CLI) | payer MEDICAID ==
--- NOTE | 2017-10-06 13:21 | Non Stress Test Report ---
Non Stress Test Datetime Report Generated by CPN: 10/06/2017 13:20 DEMOGRAPHIC Test Number: 1 EGA NST: 35.0 EGA NST: 34.0 EGA NST: 24.5 INDICATION Indication for Study: Ordered by Provider Indication for Study: Ordered by Provider Indication for Study: labor Indication for Study (NST) Other: repeat from the office VITAL SIGNS RESP - NST: 16 MONITORING Monitor Explained: Monitor Explained; Test Explained; Patient Verbalized Understanding Monitor Explained: Monitor Explained; Test Explained; Patient Verbalized Understanding Monitor Explained: Monitor Explained; Test Explained; Patient Verbalized Understanding Time on Monitor: 10/06/2017 12:36 Time on Monitor: 09/29/2017 11:19 Time on Monitor: 07/26/2017 12:02 Time off Monitor: 10/06/2017 12:58 Time off Monitor: 09/29/2017 11:42 NST Duration: 22 NST Duration: 23 NST INTERVENTIONS NST Interventions: PO Hydration NST Interventions: Reposition Patient NST Interventions: PO Hydration Physician Notified NST: Coronado, CNM Physician Notified NST: Zoraida Sarthak PIMENTEL BABY A: [id number] BABY A Movement : Present Movement : Present Movement : Present Contraction Frequency : 0 Contraction Frequency : 0 FHR Baseline : 140 FHR Baseline : 145 Accelerations : 15X15 Accelerations : 15X15 Decelerations : None Variability : Moderate 6-25bpm Variability : Moderate 6-25bpm NST Review: Meets Criteria for Reactive NST NST Review: Meets Criteria for Reactive NST NST Review: Meets Criteria for Reactive NST NST Review and Verified By : Azra Peña RNC NST Review and Verified By : MNAAV Florian NST Results: Reactive NST Results: Reactive NST Results: Reactive NST REPORT Report Trigger: Send Report
== END 2017-10-06 13:00 | disposition home or self-care (01) ==
LOC: LC 12:28
PROVIDERS: ATTEND Obstetrics & Gynecology Gynecology
PROC: 4A1HXCZ Monitoring of Products of Conception, Cardiac Rate, External Approach (ICD-10-PCS; principal; 2017-10-06)
DX: O47.03 False labor before 37 completed weeks of gestation, third trimester (principal); Z3A.35 35 weeks gestation of pregnancy
CPT/HCPCS: 59025

== ENCOUNTER 2017-10-09 19:23 | Emergency (ER) | payer MEDICAID ==
--- NOTE | 2017-10-09 20:19 | ER Document Report ---
ED Medical Screen (RME) - General Chief Complaint: Fever Stated Complaint: FEVER,CHILLS Time Seen by Provider: 10/09/17 20:17 Notes: The patient is a 32 yo female, 35 weeks , presents with diffuse body aches for the past 2 days and a runny nose. Denies any symptoms of labor at this time. PE: Tachycardia, lungs CTAB, non-tender gravid abdomen I have greeted and performed a rapid initial assessment of this patient. A comprehensive ED assessment and evaluation of the patient, analysis of test results and completion of the medical decision making process will be conducted by additional ED providers. TRAVEL OUTSIDE OF THE [place] IN LAST 30 DAYS: No - Related Data Allergies/Adverse Reactions: cetirizine [From Zyrtec] Allergy (Verified 10/06/17 12:48) penicillin G Allergy (Verified 10/06/17 12:48) penicillin V Allergy (Verified 10/06/17 12:48) Penicillins Allergy (Verified 10/06/17 12:48) pseudoephedrine [From Zyrtec-D] Allergy (Verified 10/06/17 12:48) Past Medical History Neurological Medical History: Reports: Hx Migraine Endocrine Medical History: Reports: Hx Diabetes Mellitus Type 2 - Gestational diabetes Renal/ Medical History: Reports: Hx Pelvic Inflammatory Disease. Denies: Hx Peritoneal Dialysis Psychiatric Medical History: Reports: Hx Anxiety, Hx Depression Past Surgical History: Reports: Hx Cholecystectomy - Immunizations Immunizations up to date: Yes Hx Diphtheria, Pertussis, Tetanus Vaccination: Yes - given today Physical Exam - Vital signs Vitals: Temp Pulse Resp BP Pulse Ox 98.8 F 133 H 22 H 115/61 98 10/09/17 19:37 10/09/17 19:37 10/09/17 19:37 10/09/17 19:37 10/09/17 19:37 Course - Vital Signs Vital signs: Temp Pulse Resp BP Pulse Ox 98.8 F 133 H 22 H 115/61 98 10/09/17 19:37 10/09/17 19:37 10/09/17 19:37 10/09/17 19:37 10/09/17 19:37 Doctor's Discharge - Discharge Referrals: FELA AVILES PA-C [Primary Care Provider] - Follow up as needed
[2017-10-09] MEDS: NORMAL SALINE 1000 ML 1,000 ML IV PRN ×2 (20:31→21:01)
[2017-10-09 20:45] LABS: ABSOLUTE EOSINOPHILS # (AUTO) 0.1 10^3/uL (0.0-0.6); ABSOLUTE LYMPHOCYTES (AUTO) 1.2 10^3/uL (0.5-4.7); ABSOLUTE MONOCYTES (AUTO) 0.9 10^3/uL (0.1-1.4); ABSOLUTE NEUT (AUTO) 7.5 10^3/uL (1.7-8.2); BASOPHILS % (AUTO) 0.2 % (0-2); EOSINOPHILS % (AUTO) 0.6 % (0-6); HEMATOCRIT 30.9 % (36.0-47.0); HEMOGLOBIN 10.9 g/dL (12.0-15.5); LYMPHOCYTES % (AUTO) 12.2 % (13-45); MEAN CORPUSCULAR HEMOGLOBIN 29.4 pg (27.0-33.4); MEAN CORPUSCULAR HGB CONC 35.1 g/dL (32.0-36.0); MEAN CORPUSCULAR VOLUME 84 fl (80-97); PLATELET COUNT 274 10^3/uL (150-450); RED BLOOD COUNT 3.69 10^6/uL (3.72-5.28); RED CELL DISTRIBUTION WIDTH 13.5 % (11.5-14.0); TOTAL CELLS COUNTED % (AUTO) 100 %; WHITE BLOOD COUNT 9.6 10^3/uL (4.0-10.5)
[2017-10-09 21:01] LABS: ALANINE AMINOTRANSFERASE 20 U/L (9-52); ALBUMIN 3.2 g/dL (3.5-5.0); ALKALINE PHOSPHATASE 130 U/L (38-126); ANION GAP 11 (5-19); ASPARTATE AMINO TRANSFERASE 16 U/L (14-36); BILIRUBIN,DIRECT 0.2 mg/dL (0.0-0.4); BILIRUBIN,TOTAL 0.4 mg/dL (0.2-1.3); BLOOD UREA NITROGEN 3 mg/dL (7-20); CALCIUM 9.1 mg/dL (8.4-10.2); CARBON DIOXIDE 23 mmol/L (22-30); CHLORIDE 107 mmol/L (98-107); CREATINE KINASE 42 U/L (30-135); GLUCOSE 95 mg/dL (75-110); POTASSIUM 3.3 mmol/L (3.6-5.0); SODIUM 140.8 mmol/L (137-145); TOTAL PROTEIN 6.5 g/dL (6.3-8.2)
[2017-10-09 21:40] LABS: APPEARANCE,URINE CLOUDY; BILIRUBIN,URINE NEGATIVE (NEGATIVE); COLOR,URINE YELLOW; GLUCOSE, URINE NEGATIVE (NEGATIVE); KETONES,URINE 20 mg/dL (NEGATIVE); LEUKOCYTE ESTERASE,URINE SMALL (NEGATIVE); NITRITE,URINE NEGATIVE (NEGATIVE); PROTEIN,URINE NEGATIVE (NEGATIVE); URINE SPECIFIC GRAVITY 1.009; UROBILINOGEN,URINE NEGATIVE mg/dL (<2.0)
--- NOTE | 2017-10-09 21:43 | EKG REPORT ---
SEVERITY:- BORDERLINE ECG - SINUS TACHYCARDIA INFERIOR Q WAVES, PROBABLY NORMAL VARIATION BORDERLINE T ABNORMALITIES, DIFFUSE LEADS : Confirmed by: Vinayak Newby MD 09-Oct-2017 21:41:30
[2017-10-09 21:52] LABS: VENOUS BLOOD HCO3 23.5 mmol/L (20-32); VENOUS BLOOD PCO2 38.3 mmHg (35-63); VENOUS BLOOD PH 7.41 (7.30-7.42)
[2017-10-09] MEDS ORDERED: ACETAMINOPHEN 325 MG TABLET PO ONE (21:57)
[2017-10-09] MEDS ORDERED: CEFTRIAXONE INJ 1000 MG VIAL IV ONE (22:06)
[2017-10-09] MEDS ORDERED: NORMAL SALINE 1000 ML 1,000 ML IV ONE (22:34)
--- NOTE | 2017-10-09 22:36 | ER Document Report ---
ED General - General Chief Complaint: Fever Stated Complaint: FEVER,CHILLS Time Seen by Provider: 10/09/17 20:17 Notes: Patient is a 32-year-old female currently 35 weeks who presents complaining of diffuse body aches, suprapubic abdominal discomfort and bilateral low back discomfort. She states that she has had subjective fever at home but has not recorded a fever. Nothing improves or worsens her symptoms but she notes has been gradually worsening over the past 24 hours. She denies any nausea, vomiting, shortness of breath, but does note that she has had a sore throat and cough. She has not seen her primary doctor or LAB SUPPORT TECH regarding today's concerns. She does follow in the high risk clinic due to persistent tachycardia during her . - Related Data Allergies/Adverse Reactions: cetirizine [From Zyrtec] Allergy (Verified 10/06/17 12:48) penicillin G Allergy (Verified 10/06/17 12:48) penicillin V Allergy (Verified 10/06/17 12:48) Penicillins Allergy (Verified 10/06/17 12:48) pseudoephedrine [From Zyrtec-D] Allergy (Verified 10/06/17 12:48) Past Medical History - General Information source: Patient - Social History Smoking Status: Current Every Day Smoker Chew tobacco use (# tins/day): No Frequency of alcohol use: None Drug Abuse: None Family History: Reviewed & Not Pertinent Patient has suicidal ideation: No Patient has homicidal ideation: No Neurological Medical History: Reports: Hx Migraine Endocrine Medical History: Reports: Hx Diabetes Mellitus Type 2 - Gestational diabetes Renal/ Medical History: Reports: Hx Pelvic Inflammatory Disease. Denies: Hx Peritoneal Dialysis Psychiatric Medical History: Reports: Hx Anxiety, Hx Depression Past Surgical History: Reports: Hx Cholecystectomy - Immunizations Immunizations up to date: Yes Hx Diphtheria, Pertussis, Tetanus Vaccination: Yes - given today Review of Systems - Review of Systems Notes: Constitutional: Negative for fever. HENT: Positive for sore throat. Eyes: Negative for visual changes. Cardiovascular: Negative for chest pain. Respiratory: Negative for shortness of breath. Positive for cough Gastrointestinal: Positive for severe abdominal pain Genitourinary: Negative for dysuria. Musculoskeletal: Negative for back pain. Skin: Negative for rash. Neurological: Negative for headaches, weakness or numbness. 10 point ROS negative except as marked above and in HPI. Physical Exam - Vital signs Vitals: Temp Pulse Resp BP Pulse Ox 98.8 F 133 H 22 H 115/61 98 10/09/17 19:37 10/09/17 19:37 10/09/17 19:37 10/09/17 19:37 10/09/17 19:37 Interpretation: Tachycardic Notes: PHYSICAL EXAMINATION: GENERAL: Appears mildly uncomfortable but in no acute distress HEAD: Atraumatic, normocephalic. EYES: Pupils equal round and reactive to light, extraocular movements intact, sclera anicteric, conjunctiva are normal. ENT: nares patent, oropharynx clear without exudates. Moderately dry mucous membranes. NECK: Normal range of motion, supple without lymphadenopathy LUNGS: Breath sounds clear to auscultation bilaterally and equal. No wheezes rales or rhonchi. HEART: Regular tachycardia without murmurs ABDOMEN: Soft, gravid uterus, nontender, normoactive bowel sounds. No guarding , no rebound. No masses appreciated. EXTREMITIES: Normal range of motion, no pitting or edema. No cyanosis. NEUROLOGICAL: No focal neurological deficits. Moves all extremities spontaneously and on command. PSYCH: Moderately anxious, tearful SKIN: Warm, Dry, normal turgor, no rashes or lesions noted. Course - Re-evaluation Re-evalutation: 10/09/17 22:34 Patient presents with fevers at home, tachycardia, mild hypotension to arrival complaining of suprapubic abdominal pain as well as bilateral flank pain as well as diffuse body pain. Patient appears mildly urinary on examination, dry mucous membranes, tachycardic. She has mild to pubic abdominal tenderness although no additional abdominal findings on exam. She has a nonproductive cough. Labs show findings consistent with likely urinary tract infection although not entirely consistent with pyelonephritis. Patient is received 2 L of IV fluids and does remain persistently tachycardic at 120 bpm. Axillary temperature 100F. Clinical history not consistent with acute appendicitis, she has no focal right lower abdominal tenderness. No focal upper abdominal tenderness is just cholestasis of , acute cholecystitis or pancreatitis. Will provide an additional liter of fluid, Tylenol, IV ceftriaxone and reassess. 10/10/17 00:07 Patient appears much improved. Heart rate has returned to her baseline which is approximately between 110 and 115 based on office readings. Review of her previous records does confirm this. Her blood pressure is likewise normalized. A urine and blood culture has been sent. The patient will be empirically started on cephalexin given the bacteriuria and her symptoms. At this time will discharge with return precautions and follow-up recommendations. Verbal discharge instructions given a the bedside and opportunity for questions given. Medication warnings reviewed. Patient is in agreement with this plan and has verbalized understanding of return precautions and the need for primary care follow-up in the next 24-72 hours. - Vital Signs Vital signs: Temp Pulse Resp BP Pulse Ox 98.4 F 114 H 20 113/73 94 10/10/17 00:24 10/10/17 00:24 10/10/17 00:24 10/10/17 00:01 10/10/17 00:01 - Laboratory Result Diagrams: 10/09/17 20:25 10/09/17 20:25 Laboratory results interpreted by me: 10/09/17 10/09/17 10/09/17 20:10 20:25 20:25 RBC 3.69 L Hgb 10.9 L Hct 30.9 L Lymphocytes % 12.2 L Potassium 3.3 L BUN 3 L Creatinine 0.46 L Alkaline Phosphatase 130 H Albumin 3.2 L Urine Ketones 20 H Urine Blood SMALL H Ur Leukocyte Esterase SMALL H - Diagnostic Test Radiology reviewed: Image reviewed, Reports reviewed Radiology results interpreted by me: 10/10/17 04:07 Chest x-ray: No acute infiltrate pneumothorax Discharge - Discharge Clinical Impression: Body aches, Third trimester Urinary tract infection Qualifiers: Urinary tract infection type: acute cystitis Hematuria presence: without hematuria Qualified Code(s): N30.00 - Acute cystitis without hematuria Condition: Good Disposition: HOME, SELF-CARE Additional Instructions: Your seen today for body aches and a possible urinary tract infection. You have been given a dose of antibiotics here in the emergency department to help begin to treat this infection. Your also being sent home on antibiotics. Please start taking these later on today when you fill the prescription. Complete the course even if you feel better. Please return if you have persistent vomiting, pass out, have worsening pain, become unable to tolerate fluids, or have any other symptoms that are concerning to you. Please follow- up with your primary care physician in the next 24-48 hours. Prescriptions: Cephalexin Monohydrate [Keflex 500 mg Capsule] 500 mg PO Q6H 7 Days capsule Referrals: FELA AVILES PA-C [Primary Care Provider] - Follow up as needed
--- NOTE | 2017-10-09 23:13 | RADIOLOGY REPORT (SQ) ---
EXAM DESCRIPTION: XR CHEST 1 VIEW COMPLETED DATE/TME: 10/09/2017 22:11 CLINICAL HISTORY: 32 years, Female, cough, fever COMPARISON: None. NUMBER OF VIEWS: 1 TECHNIQUE: EXAM: Single view, AP portable chest was obtained. FINDINGS: Unremarkable cardiac and mediastinal silhouette. Heart size is normal. Lungs are clear without focal opacity, pneumothorax or pleural effusions. The visualized bones are within normal limits. IMPRESSION: No acute cardiopulmonary abnormalities. 2011 [employer]- All Rights Reserved
[2017-10-10 00:17] VITALS: BP 113/73
== END 2017-10-10 00:24 | disposition home or self-care (01) ==
LOC: ER 19:23
DX: O23.13 Infections of bladder in pregnancy, third trimester (principal); O26.93 Pregnancy related conditions, unspecified, third trimester; R50.9 Fever, unspecified; M79.1 Myalgia; O99.333 Smoking (tobacco) complicating pregnancy, third trimester; Z3A.35 35 weeks gestation of pregnancy; Z88.0 Allergy status to penicillin
CPT/HCPCS: 93005; 99284; 96361; 96365; 36415; 87040; 87086; 82550; 85025; 80053; 81001; 82803; 83605; 71045; 93010; J3490; J0696; J7030

== ENCOUNTER 2017-10-12 14:32 | Outpatient (CLI) | payer MEDICAID ==
--- NOTE | 2017-10-12 18:02 | RADIOLOGY REPORT (SQ) ---
EXAM DESCRIPTION: U/S PROFILE W/O STRESS COMPLETED DATE/TIME: 10/12/2017 5:44 pm REASON FOR STUDY: Nonreactive NST COMPARISON: None. TECHNIQUE: Limited jim-scale realtime and static images of the fetus to measure specified parameter s. LIMITATIONS: None. FINDINGS: HEART RATE: 139 beats per minute. WILLIAM: Largest pocket 3.75 cm. BREATHING MOVEMENT: 2 points. MOVEMENT: 2 points. POSTURE AND TONE: 2 points. QUALITATIVE WILLIAM: 2 points. OTHER: No other significant finding. IMPRESSION: BIOPHYSICAL PROFILE: 11/09. Trimester of : Third - 28 weeks to delivery COMMENT: BREATHING MOVEMENTS: 2 POINTS: PRESENT 0 POINTS: ABSENT MOTION: 2 POINTS: PRESENT 0 POINTS: ABSENT TONE: 2 POINTS: PRESENT 0 POINTS: ABSENT AMNIOTIC FLUID VOLUME: 2 POINTS: LARGEST POCKET GREATER THAN 2 CM DEPTH. 0 POINTS: NO POCKET OF 2 CM. TECHNICAL DOCUMENTATION: JOB ID: [id number] [employer]- All Rights Reserved Reading location - IP/workstation name: [email or web address]
--- NOTE | 2017-10-12 18:39 | Non Stress Test Report ---
Non Stress Test Datetime Report Generated by CPN: 10/12/2017 18:38 DEMOGRAPHIC EGA NST: 35.6 INDICATION Indication for Study: Diabetes Mellitus Indication for Study (NST) Other: repeat NST VITAL SIGNS Temperature - NST: 97.8 Pulse - NST: 110 RESP - NST: 14 NBPSYS NST: 120 NBPDIA NST: 74 MONITORING Monitor Explained: Monitor Explained; Test Explained; Patient Verbalized Understanding Time on Monitor: 10/12/2017 17:36 Time off Monitor: 10/12/2017 18:15 NST Duration: 39 NST INTERVENTIONS NST Interventions: PO Hydration Physician Notified NST: K. Coronado, CNM BABY A: [id number] BABY A Movement : Present Contraction Frequency : 0 FHR Baseline : 135 Accelerations : 10X10 Decelerations : None Variability : Moderate 6-25bpm NST Review: Does Not Meet Criteria for Reactive NST NST Review and Verified By : D Bellavance RNC NST Results: Non-Reactive NST COMMENTS NST Comments: PT sent for BPP, results shared with Dr. Hamzah NST REPORT Report Trigger: Send Report
== END 2017-10-12 18:20 | disposition home or self-care (01) ==
LOC: LC 14:32
PROVIDERS: ATTEND Obstetrics & Gynecology
PROC: 4A1HXCZ Monitoring of Products of Conception, Cardiac Rate, External Approach (ICD-10-PCS; principal; 2017-10-12)
DX: O24.419 Gestational diabetes mellitus in pregnancy, unspecified control (principal); Z3A.35 35 weeks gestation of pregnancy
CPT/HCPCS: 76819

== ENCOUNTER 2017-10-20 11:49 | Outpatient (CLI) | payer MEDICAID ==
--- NOTE | 2017-10-20 14:07 | Non Stress Test Report ---
Non Stress Test Datetime Report Generated by CPN: 10/20/2017 14:07 DEMOGRAPHIC EGA NST: 37.0 INDICATION Indication for Study: Ordered by Provider Indication for Study: Ordered by Provider Indication for Study (NST) Other: Repeat nst from the office MONITORING Monitor Explained: Monitor Explained; Test Explained; Patient Verbalized Understanding Monitor Explained: Monitor Explained; Test Explained; Patient Verbalized Understanding Time on Monitor: 10/20/2017 13:33 Time off Monitor: 10/20/2017 14:03 NST Duration: 30 NST INTERVENTIONS NST Interventions: PO Hydration; Reposition Patient NST Interventions: None Physician Notified NST: A Emmel CNM Physician Notified NST: A Emmel CNM BABY A: [id number] BABY A Movement : Present Movement : Present Contraction Frequency : 0 Contraction Frequency : none FHR Baseline : 125 FHR Baseline : 135 Accelerations : 15X15 Accelerations : 15X15 Decelerations : None Decelerations : None Variability : Moderate 6-25bpm Variability : Moderate 6-25bpm NST Review: Meets Criteria for Reactive NST NST Review: Meets Criteria for Reactive NST NST Review and Verified By : Sunny Zepeda RN NST Results: Reactive NST Results: Reactive NST REPORT Report Trigger: Send Report
== END 2017-10-20 14:11 | disposition home or self-care (01) ==
LOC: LC 11:49
PROVIDERS: ATTEND Obstetrics & Gynecology Gynecology
PROC: 4A1HXCZ Monitoring of Products of Conception, Cardiac Rate, External Approach (ICD-10-PCS; principal; 2017-10-20)
DX: Z36.2 Encounter for other antenatal screening follow-up (principal)
CPT/HCPCS: 59025

== ENCOUNTER 2017-10-24 12:56 | Outpatient (CLI) | payer MEDICAID ==
[2017-10-24 14:14] LABS: APPEARANCE,URINE CLOUDY; BILIRUBIN,URINE NEGATIVE (NEGATIVE); COLOR,URINE YELLOW; GLUCOSE, URINE NEGATIVE (NEGATIVE); KETONES,URINE NEGATIVE (NEGATIVE); LEUKOCYTE ESTERASE,URINE MODERATE (NEGATIVE); NITRITE,URINE NEGATIVE (NEGATIVE); PROTEIN,URINE NEGATIVE (NEGATIVE); URINE SPECIFIC GRAVITY 1.015
--- NOTE | 2017-10-24 14:43 | Non Stress Test Report ---
Non Stress Test Datetime Report Generated by CPN: 10/24/2017 14:43 DEMOGRAPHIC EGA NST: 37.4 INDICATION Indication for Study: Ordered by Provider VITAL SIGNS Temperature - NST: 99.3 Pulse - NST: 104 RESP - NST: 20 NBPSYS NST: 105 NBPDIA NST: 59 MONITORING Monitor Explained: Monitor Explained; Test Explained; Patient Verbalized Understanding Time on Monitor: 10/24/2017 13:44 Time off Monitor: 10/24/2017 14:36 NST Duration: 52 NST INTERVENTIONS NST Interventions: PO Hydration Physician Notified NST: A Ashraf CNM Physician Notified NST: A Ashraf CNM BABY A: [id number] BABY A Movement : Present Contraction Frequency : irregular FHR Baseline : 130 Accelerations : 15X15 Decelerations : None Variability : Moderate 6-25bpm NST Review: Meets Criteria for Reactive NST NST Review and Verified By : Sunny Zepeda RN NST Results: Reactive NST REPORT Report Trigger: Send Report
[2017-10-24 16:44] LABS: URINE AMPHETAMINES SCREEN NEGATIVE; URINE BARBITURATES SCREEN NEGATIVE; URINE BENZODIAZEPINES SCREEN NEGATIVE; URINE COCAINE SCREEN NEGATIVE; URINE MARIJUANA (THC) SCREEN NEGATIVE; URINE METHADONE SCREEN NEGATIVE; URINE PHENCYCLIDINE SCREEN NEGATIVE
== END 2017-10-24 14:30 | disposition home or self-care (01) ==
LOC: LC 12:56
PROVIDERS: ATTEND Obstetrics & Gynecology
PROC: 4A1HXCZ Monitoring of Products of Conception, Cardiac Rate, External Approach (ICD-10-PCS; principal; 2017-10-24)
DX: O47.1 False labor at or after 37 completed weeks of gestation (principal); Z3A.37 37 weeks gestation of pregnancy
CPT/HCPCS: 59025; 80307; 81005

== ENCOUNTER 2017-10-27 12:06 | Outpatient (CLI) | payer MEDICAID ==
--- NOTE | 2017-10-27 13:29 | Non Stress Test Report ---
Non Stress Test Datetime Report Generated by CPN: 10/27/2017 13:28 DEMOGRAPHIC EGA NST: 38.0 INDICATION Indication for Study: Diabetes Mellitus VITAL SIGNS Temperature - NST: 98.4 Pulse - NST: 96 RESP - NST: 16 NBPSYS NST: 120 NBPDIA NST: 72 MONITORING Monitor Explained: Monitor Explained; Test Explained; Patient Verbalized Understanding Time on Monitor: 10/27/2017 12:24 Time off Monitor: 10/27/2017 13:23 NST Duration: 59 NST INTERVENTIONS NST Interventions: PO Hydration; Reposition Patient Physician Notified NST: A. Ashraf, CNM BABY A: [id number] BABY A Movement : Present Contraction Frequency : None FHR Baseline : 135 Accelerations : 15X15 Decelerations : None Variability : Moderate 6-25bpm Variability : Moderate 6-25bpm NST Review: Meets Criteria for Reactive NST NST Review and Verified By : LOREN MOTA RN NST Results: Reactive NST REPORT Report Trigger: Send Report
== END 2017-10-27 13:35 | disposition home or self-care (01) ==
LOC: LC 12:06
PROVIDERS: ATTEND Student in an Organized Health Care Education/Training Program
PROC: 4A1HXCZ Monitoring of Products of Conception, Cardiac Rate, External Approach (ICD-10-PCS; principal; 2017-10-27)
DX: O47.1 False labor at or after 37 completed weeks of gestation (principal); Z3A.38 38 weeks gestation of pregnancy
CPT/HCPCS: 59025

== ENCOUNTER 2017-11-03 06:16 | Inpatient (IN) | payer MEDICAID ==
[2017-11-03] MEDS ORDERED: RINGERS SOLUTION,LACTATED 1,000 ML IV PRN (06:34)
[2017-11-03 06:53] LABS: APPEARANCE,URINE CLOUDY; BILIRUBIN,URINE NEGATIVE (NEGATIVE); COLOR,URINE YELLOW; GLUCOSE, URINE NEGATIVE (NEGATIVE); KETONES,URINE NEGATIVE (NEGATIVE); LEUKOCYTE ESTERASE,URINE LARGE (NEGATIVE); NITRITE,URINE NEGATIVE (NEGATIVE); PROTEIN,URINE 30 mg/dL (NEGATIVE); UROBILINOGEN,URINE NEGATIVE mg/dL (<2.0)
[2017-11-03 07:09] LABS: URINE AMPHETAMINES SCREEN NEGATIVE; URINE BARBITURATES SCREEN NEGATIVE; URINE BENZODIAZEPINES SCREEN NEGATIVE; URINE COCAINE SCREEN NEGATIVE; URINE MARIJUANA (THC) SCREEN NEGATIVE; URINE METHADONE SCREEN NEGATIVE; URINE PHENCYCLIDINE SCREEN NEGATIVE
[2017-11-03 07:14] LABS: ABSOLUTE BASOPHILS # (AUTO) 0.1 10^3/uL (0.0-0.2); ABSOLUTE EOSINOPHILS # (AUTO) 0.2 10^3/uL (0.0-0.6); ABSOLUTE LYMPHOCYTES (AUTO) 3.1 10^3/uL (0.5-4.7); ABSOLUTE MONOCYTES (AUTO) 0.7 10^3/uL (0.1-1.4); ABSOLUTE NEUT (AUTO) 7.2 10^3/uL (1.7-8.2); BASOPHILS % (AUTO) 0.7 % (0-2); EOSINOPHILS % (AUTO) 2.1 % (0-6); HEMATOCRIT 31.5 % (36.0-47.0); HEMOGLOBIN 10.7 g/dL (12.0-15.5); LYMPHOCYTES % (AUTO) 27.4 % (13-45); MEAN CORPUSCULAR HEMOGLOBIN 28.8 pg (27.0-33.4); MEAN CORPUSCULAR VOLUME 85 fl (80-97); MONOCYTES % (AUTO) 6.2 % (3-13); PLATELET COUNT 431 10^3/uL (150-450); RED BLOOD COUNT 3.72 10^6/uL (3.72-5.28); SEGMENTED NEUTROPHILS % (AUTO) 63.6 % (42-78); TOTAL CELLS COUNTED % (AUTO) 100 %; WHITE BLOOD COUNT 11.3 10^3/uL (4.0-10.5)
[2017-11-03] MEDS ORDERED: OXYTOCIN/NORMAL SALINE 20 UNIT/1,000 ML RTUINJ IV PRN ×2 (07:27→22:24)
[2017-11-03] MEDS ORDERED: VANCOMYCIN HCL INJ 1000 MG VIAL IV ONE (08:14)
[2017-11-03] MEDS ORDERED: VANCOMYCIN HCL INJ 1000 MG VIAL ONE (08:17)
[2017-11-03] MEDS ORDERED: MISOPROSTOL 0.2 MG TABLET ONE ×2 (08:37→15:41)
[2017-11-03] MEDS ORDERED: OXYTOCIN/NORMAL SALINE 20 UNIT/1,000 ML RTUINJ ONE (08:37)
[2017-11-03] MEDS ORDERED: LIDOCAINE 1% INJ-PF (10 MG/ML) 30 ML SDV ONE ×2 (08:37→15:42)
[2017-11-03] MEDS ORDERED: FENTANYL/BUPIVACAINE/NS/PF 300 MCG/150 ML RTUINJ EPI ONE (13:53)
[2017-11-03] MEDS ORDERED: EPHEDRINE SULFATE INJ 50 MG/1 ML AMPULE ONE (13:53)
[2017-11-03] MEDS ORDERED: BUPIVACAINE HCL 0.25 % INJ/PF (2.5 MG/1 ML) 30 ML VIAL ONE (13:53)
[2017-11-03] MEDS ORDERED: PHENYLEPHRINE HCL INJ/PF 10 MG/1 ML SDV ONE (13:57)
[2017-11-03] MEDS ORDERED: FENTANYL CITRATE INJ/PF 100 MCG/2 ML AMPUL ONE (13:57)
[2017-11-03] MEDS ORDERED: ACETAMINOPHEN WITH CODEINE #3 TABLET PO PRN ×2 (22:24)
[2017-11-03] MEDS ORDERED: MEASLES,MUMPS&RUBELLA VACC/PF 0.5 ML VIAL SUBCUT PRN (22:24)
[2017-11-03] MEDS ORDERED: DIPH/PERTUSS(ACELL)/TETANUS VAC/PF 0.5 ML SYR (>=10YO) IM PRN (22:24)
[2017-11-03] MEDS ORDERED: ZOLPIDEM TARTRATE 5 MG TABLET PO PRN (22:24)
[2017-11-03] MEDS ORDERED: BENZOCAINE/MENTHOL AEROSOL SPRAY 56 ML TOP PRN (22:24)
[2017-11-03] MEDS ORDERED: DIBUCAINE 1% OINTMENT 28 GM TP PRN (22:24)
[2017-11-03] MEDS: IBUPROFEN 800 MG TABLET PO SCH (22:40)
[2017-11-04] MEDS: IBUPROFEN 800 MG TABLET PO SCH ×3 (05:15→22:07)
[2017-11-04 07:17] LABS: HEMATOCRIT 31.3 % (36.0-47.0); HEMOGLOBIN 10.6 g/dL (12.0-15.5); MEAN CORPUSCULAR HEMOGLOBIN 28.5 pg (27.0-33.4); MEAN CORPUSCULAR HGB CONC 33.8 g/dL (32.0-36.0); MEAN CORPUSCULAR VOLUME 85 fl (80-97); PLATELET COUNT 299 10^3/uL (150-450); RED CELL DISTRIBUTION WIDTH 14.5 % (11.5-14.0); WHITE BLOOD COUNT 12.1 10^3/uL (4.0-10.5)
[2017-11-04] MEDS: SENNOSIDES/DOCUSATE 8.6-50 MG 1 EACH TABLET PO SCH (10:26)
[2017-11-04] MEDS: DOCUSATE SODIUM 100 MG CAPSULE PO SCH ×2 (10:26→18:00)
[2017-11-04] MEDS: FERROUS SULFATE 325 MG TABLET PO SCH ×2 (10:26→18:00)
[2017-11-04] MEDS: PRENATAL VITAMIN W DHA CAPSULE PO SCH (10:26)
--- NOTE | 2017-11-04 11:20 | PDOC PROGRESS REPORT ---
Subjective-OB Progress Note for:: 11/04/17 Subjective: reports bleeding slowing, pain controlled with current meds. no complaints or needs expressed Physical Exam (OB) Vital Signs: Temp Pulse Resp BP Pulse Ox 98.0 F 86 17 123/78 99 11/04/17 08:00 11/04/17 08:01 11/04/17 08:01 11/04/17 08:01 11/04/17 08:01 Intake & Output 11/03/17 11/04/17 11/05/17 06:59 06:59 06:59 Intake Total 6 Balance 6 Weight 121.9 kg - Abdomen Description: Soft, Round Hernia Present: No Fundal Description: Firm, Midline Fundal Height: u/u - u/2 - Abdominal Tenderness: Nontender - Extremities Lower extremities: Tom's sign - neg Calf: Normal, Nontender Objective-Diagnostic Laboratory: 11/04/17 07:02 11/04/17 07:02 WBC 12.1 H RBC 3.70 L Hgb 10.6 L Hct 31.3 L MCV 85 MCH 28.5 MCHC 33.8 RDW 14.5 H Plt Count 299 Assessment and Plan(PN) - Assessment and Plan (1) Vaginal delivery Is this a current diagnosis for this admission?: Yes - Time Spent with Patient Time with patient: Less than 15 minutes Medications reviewed and adjusted accordingly: Yes - Disposition Anticipated Discharge: Home Within: within 24 hours
[2017-11-04] MEDS: BUPROPION HCL 75 MG TABLET PO SCH (22:08)
[2017-11-05] MEDS: IBUPROFEN 800 MG TABLET PO SCH (05:30)
[2017-11-05] MEDS: BUPROPION HCL 75 MG TABLET PO SCH (09:51)
[2017-11-05] MEDS: DOCUSATE SODIUM 100 MG CAPSULE PO SCH (09:51)
[2017-11-05] MEDS: PRENATAL VITAMIN W DHA CAPSULE PO SCH (09:51)
[2017-11-05] MEDS: FERROUS SULFATE 325 MG TABLET PO SCH (09:51)
[2017-11-05] MEDS: SENNOSIDES/DOCUSATE 8.6-50 MG 1 EACH TABLET PO SCH (09:51)
[2017-11-05] MEDS ORDERED: (PENDING PHARMACY ID) (Bupropion Hcl [Wellbutrin Sr 150 Mg Tablet] 1 TAB) PO SCH (10:00)
--- NOTE | 2017-11-05 10:38 | PDOC DISCHARGE SUMMARY ---
Final Diagnosis Discharge Date: 11/05/17 - Final Diagnosis (1) Vaginal delivery Is this a current diagnosis for this admission?: Yes Discharge Data - Discharge Medication Prescriptions: Bupropion HCl [Wellbutrin Sr 150 mg Tablet] 1 tab PO DAILY #30 tablet.sa Ibuprofen [Motrin 800 mg Tablet] 800 mg PO Q8HP PRN #60 tablet PRN Reason: Home Medications: Vit/Iron Fum/Folic AC [ Tablet] 1 tab PO DAILY 06/11/17 Bupropion HCl [Wellbutrin Sr 150 mg Tablet] 1 tab PO DAILY #30 tablet.sa Ibuprofen [Motrin 800 mg Tablet] 800 mg PO Q8HP PRN #60 tablet 11/05/17 Procedures: NST Intrapartum Procedure(s): Spontaneous Vaginal Delivery - Diagnosis Test Laboratory: Temp Pulse Resp BP Pulse Ox 99.0 F 92 18 118/79 99 11/05/17 07:53 11/05/17 07:53 11/05/17 07:53 11/05/17 07:53 11/05/17 07:53 11/03/17 11/03/17 11/04/17 06:28 06:54 07:02 RBC 3.72 3.70 L Hgb 10.7 L 10.6 L Hct 31.5 L 31.3 L Urine Opiates Screen NEGATIVE - Discharge information/Instructions Discharge Activity: Balance Activity w/Rest, Pelvic Rest Discharge Diet: Regular Disposition: HOME, SELF-CARE Follow up with: [facility] in: 4, Weeks
[2017-11-05] MEDS ORDERED: FUROSEMIDE 20 MG TABLET PO ONE (10:45)
[2017-11-05 11:07] VITALS: BP 128/79
--- NOTE | 2017-11-14 13:03 | Delivery Summary ---
Del Sum A-C Datetime Report Generated by CPN: 11/14/2017 13:02 DELIVERY PERSONNEL DELIVERY PERSONNEL: [id number] Delivery Doctor:: Erlinda Coronado CNM Nurse Airline Flight Attendant Certified:: Erlinda Coronado CNM Labor and Delivery Nurse:: VASILE Duong/NIGHT CLERK AUDITOR: Nicole Roper CNA II MATERNAL INFORMATION Delivery Anesthesia: Epidural Medications After Delivery: Pitocin Bolus-Please Comment Maternal Complications: Other Complication Details: GDM Provider Comments: SVDVM over 1* vag lac. Infant with nuchal, unable to reduce, somersaulted through, vigorous, to mothers abd. Cord clamped x2 cut, Placenta via Coronado, intact. FF immediately. Apgars 9,10. LABOR SUMMARY EDC: 11/10/2017 00:00 No. Babies in Womb: 1 Attempted: No Labor Anesthesia: Epidural LABOR INFORMATION Reason for Induction: Maternal Diabetes Onset of Labor: 11/03/2017 13:18 Complete Dilatation: 11/03/2017 16:05 Oxytocin: Induction Group B Beta Strep: positive Antibiotics # of Doses: 1 Antibiotics Time of Last Dose: 831 Name of Antibiotic Given: Vancomycin Steroids Given: None Reason Steroids Not Administered: Not Applicable MEMBRANES Membranes Rupture Method: Artificial Rupture of Membranes: 11/03/2017 13:14 Length of Rupture (hr): 2.98 Amniotic Fluid Color: Clear Amniotic Fluid Amount: Scant Amniotic Fluid Odor: None STAGES OF LABOR Stage 1 hr: 2 Stage 1 min: 47 Stage 2 hr: 0 Stage 2 min: 8 Stage 3 hr: 0 Stage 3 min: 7 Total Time in Labor hr: 3 Total Time in Labor min: 2 VAGINAL DELIVERY Episiotomy: None Laceration #1: None Laceration Extension #1: N/A Laceration Repair: Not Applicable Laceration Repair Note: no repair needed Sponge Count Correct: N/A Sharps Count Correct: N/A CSECTION DELIVERY Primary Indication: N/A Secondary Indication: N/A CSection Incidence: N/A Labor: N/A Elective: N/A CSection Incision: N/A BABY A INFORMATION Infant Delivery Date/Time: 11/03/2017 16:13 Method of Delivery: Vaginal Born in Route : No : N/A Forceps: N/A Vacuum Extraction: N/A Shoulder Dystocia : No PRESENTATION/POSITION BABY A Presentation: Cephalic Cephalic Presentation: Vertex Vertex Position: Left Occipital Anterior Breech Presentation: N/A PLACENTA INFORMATION BABY A Placenta Delivery Time : 11/03/2017 16:20 Placenta Method of Delivery: Spontaneous Placenta Status: Delivered SCORES BABY A Heart Rate 1 min: >100 bpm Resp Effort 1 min: Good Cry Reflex Irritability 1 min: Cough or Sneeze or Pulls Away Muscle Tone 1 min: Active Motion Color 1 min: Body [place], Extremities Blue SCORE 1 MIN: 9 Heart Rate 5 min: >100 bpm Resp Effort 5 min: Good Cry Reflex Irritability 5 min: Cough or Sneeze or Pulls Away Muscle Tone 5 min: Active Motion Color 5 min: Body [place], Extremities Blue SCORE 5 MIN: 9 INFORMATION BABY A Gestational Age at Delivery: 39.0 Gestational Status: Full Term- 39- 40.6 Weeks Infant Outcome : Liveborn Condition : Stable Sex: Male IDENTIFICATION BABY A Infant Verification Date/Time: 11/03/2017 16:51 ID Band Number: [id number] Mother's Name Verified: Yes Infant RN Verifying Infant: D BELLAVANCE, RNC Additional Verifying Personnel: BL ROULUND, RN WEIGHT/LENGTH BABY A Infant Birthweight (gm): 3300 Weight (lb): 7 Infant Weight (oz): 4 Infant Length (in): 20.75 Length (cm): 52.71 CORD INFORMATION BABY A No. Cord Vessels: 3 Nuchal Cord : Around Neck x1, Loose Cord Blood Taken: Yes-For Storage (Mom's Blood type +) Infant Suction: None ASSESSMENT BABY A Complications: None Physical Findings at Delivery: Within Normal Limits Infant Respirations: Appears Normal Skin to Skin: No Welcome Center Agent/ALS Called : No Care By: D Bellavance RN Transferred To: Remains with Mother BABY B INFORMATION : N/A SIGNATURES Assignment: Nicanor Pratt, MD Signature: with User ID: [email or web address] : with User ID: [email or web address] : I was personally available for consultation and serving as supervising physician for the MLP.
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
== END 2017-11-05 11:38 | disposition home or self-care (01) | DRG 775 ==
LOC: LR 06:16 → EEVIPCON 06:16 → 2S 19:14
PROVIDERS: ADMIT Obstetrics & Gynecology; ATTEND Obstetrics & Gynecology
PROC: 10E0XZZ Delivery of Products of Conception, External Approach (ICD-10-PCS; principal; 2017-11-03)
PROC: 4A1HXCZ Monitoring of Products of Conception, Cardiac Rate, External Approach (ICD-10-PCS; 2017-11-03)
DX: O24.429 Gestational diabetes mellitus in childbirth, unspecified control (principal); O99.824 Streptococcus B carrier state complicating childbirth; O69.81X0 Labor and delivery complicated by cord around neck, without compression, not applicable or unspecified; Z37.0 Single live birth; Z3A.39 39 weeks gestation of pregnancy
CPT/HCPCS: 36415; 80307; 81005; 85025; 85027; 86592; 86850; 86900; 86901; 94760; J2370; J2590; J3010; J3370; J3490

== ENCOUNTER 2018-09-02 17:22 | Emergency (ER) | payer MEDICAID ==
[2018-09-02] MEDS ORDERED: NORMAL SALINE 1000 ML 1,000 ML IV ONE (17:48)
--- NOTE | 2018-09-02 17:49 | ER Document Report ---
ED Medical Screen (RME) - General Chief Complaint: Rectal Abscess Stated Complaint: POSSIBLE ABSCESS Time Seen by Provider: 09/02/18 17:47 Primary Care Provider: FELA AVILES PA-C [Primary Care Provider] - Follow up as needed Mode of Arrival: Ambulatory Information source: Patient Notes: Patient with perianal tenderness swelling and purulent drainage. Patient states she has had tenderness in this area for the past 10 days but it came to ahead recently. Patient states she had an infection back here previously. Patient denies any fever. I have greeted and performed a rapid initial assessment of this patient. A comprehensive ED assessment and evaluation of the patient, analysis of test results and completion of the medical decision making process will be conducted by additional ED providers. TRAVEL OUTSIDE OF THE [place] IN LAST 30 DAYS: No - Related Data Allergies/Adverse Reactions: cetirizine [From Zyrtec] Allergy (Verified 11/03/17 06:33) penicillin G Allergy (Verified 11/03/17 06:33) penicillin V Allergy (Verified 11/03/17 06:33) Penicillins Allergy (Verified 11/03/17 06:33) pseudoephedrine [From Zyrtec-D] Allergy (Verified 11/03/17 06:33) Past Medical History Neurological Medical History: Reports: Hx Migraine Endocrine Medical History: Reports: Hx Diabetes Mellitus Type 2 - Gestational diabetes Renal/ Medical History: Reports: Hx Pelvic Inflammatory Disease. Denies: Hx Peritoneal Dialysis Psychiatric Medical History: Reports: Hx Anxiety, Hx Depression Past Surgical History: Reports: Hx Cholecystectomy - Immunizations Immunizations up to date: Yes Hx Diphtheria, Pertussis, Tetanus Vaccination: Yes - given today Physical Exam - Vital signs Vitals: Temp Pulse Resp BP Pulse Ox 98.2 F 127 H 17 151/90 H 100 09/02/18 17:28 09/02/18 17:28 09/02/18 17:28 09/02/18 17:28 09/02/18 17:28 - General General appearance: Alert, Anxious Notes: Patient with perianal abscess Course - Vital Signs Vital signs: Temp Pulse Resp BP Pulse Ox 98.2 F 127 H 17 151/90 H 100 09/02/18 17:28 09/02/18 17:28 09/02/18 17:28 09/02/18 17:28 09/02/18 17:28 Doctor's Discharge - Discharge Referrals: FELA AVILES PA-C [Primary Care Provider] - Follow up as needed
[2018-09-02] MEDS ORDERED: MORPHINE SULFATE 10 MG/ML INJ IV ONE (17:53)
[2018-09-02 18:30] LABS: ABSOLUTE BASOPHILS # (AUTO) 0.1 10^3/uL (0.0-0.2); ABSOLUTE EOSINOPHILS # (AUTO) 0.1 10^3/uL (0.0-0.6); ABSOLUTE LYMPHOCYTES (AUTO) 3.1 10^3/uL (0.5-4.7); ABSOLUTE NEUT (AUTO) 13.4 10^3/uL (1.7-8.2); BASOPHILS % (AUTO) 0.7 % (0-2); EOSINOPHILS % (AUTO) 0.8 % (0-6); HEMATOCRIT 36.2 % (36.0-47.0); HEMOGLOBIN 12.2 g/dL (12.0-15.5); LYMPHOCYTES % (AUTO) 17.4 % (13-45); MEAN CORPUSCULAR HEMOGLOBIN 28.4 pg (27.0-33.4); MEAN CORPUSCULAR HGB CONC 33.7 g/dL (32.0-36.0); MEAN CORPUSCULAR VOLUME 85 fl (80-97); MONOCYTES % (AUTO) 5.9 % (3-13); PLATELET COUNT 417 10^3/uL (150-450); RED BLOOD COUNT 4.28 10^6/uL (3.72-5.28); RED CELL DISTRIBUTION WIDTH 13.2 % (11.5-14.0); SEGMENTED NEUTROPHILS % (AUTO) 75.2 % (42-78); TOTAL CELLS COUNTED % (AUTO) 100 %; WHITE BLOOD COUNT 17.8 10^3/uL (4.0-10.5)
[2018-09-02 18:52] LABS: ALANINE AMINOTRANSFERASE 22 U/L (9-52); ALBUMIN 3.9 g/dL (3.5-5.0); ALKALINE PHOSPHATASE 127 U/L (38-126); ANION GAP 13 (5-19); ASPARTATE AMINO TRANSFERASE 17 U/L (14-36); BILIRUBIN,DIRECT 0.3 mg/dL (0.0-0.4); BILIRUBIN,TOTAL 0.5 mg/dL (0.2-1.3); BLOOD UREA NITROGEN 7 mg/dL (7-20); CALCIUM 9.8 mg/dL (8.4-10.2); CARBON DIOXIDE 25 mmol/L (22-30); CHLORIDE 104 mmol/L (98-107); GLUCOSE 141 mg/dL (75-110); POTASSIUM 3.6 mmol/L (3.6-5.0); TOTAL PROTEIN 7.9 g/dL (6.3-8.2)
[2018-09-02] MEDS ORDERED: HYDROMORPHONE HCL INJ/PF 2 MG/ML AMPULE IV ONE (20:10)
[2018-09-02] MEDS ORDERED: SULFAMETHOXAZOLE/TRIMETHOPRIM 800-160 MG TABLET PO ONE (20:38)
[2018-09-02] MEDS ORDERED: KETOROLAC TROMETHAMINE INJ/PF 30 MG/1 ML SDV IV ONE (20:38)
--- NOTE | 2018-09-02 20:41 | ER Document Report ---
ED General - General Chief Complaint: Rectal Abscess Stated Complaint: POSSIBLE ABSCESS Time Seen by Provider: 09/02/18 17:47 Primary Care Provider: FELA AVILES PA-C [Primary Care Provider] - Follow up as needed MARCE BELTRÁN MD [ACTIVE STAFF] - 09/04/18 Mode of Arrival: Ambulatory Notes: Patient is a 33-year-old female who presents with complaints of 1 week of progressively worsening pain near her anus. Patient states that she has an area of swelling to the area that is a severe, throbbing, constant discomfort. Worsened by sitting or touching the area. Not improved by anything. States this feels very similar to when she had a perianal abscess in the past but it did spontaneously drain at that time. Has not seen her general physician regarding today's concerns. States that she has felt hot and cold but has not recorded a fever at home. Denies vomiting, abdominal pain, shortness of breath or cough. TRAVEL OUTSIDE OF THE [place] IN LAST 30 DAYS: No - Related Data Allergies/Adverse Reactions: cetirizine [From Zyrtec] Allergy (Verified 11/03/17 06:33) penicillin G Allergy (Verified 11/03/17 06:33) penicillin V Allergy (Verified 11/03/17 06:33) Penicillins Allergy (Verified 11/03/17 06:33) pseudoephedrine [From Zyrtec-D] Allergy (Verified 11/03/17 06:33) Past Medical History - General Information source: Patient - Social History Smoking Status: Former Smoker Chew tobacco use (# tins/day): No Frequency of alcohol use: Occasional Drug Abuse: None Lives with: Family Family History: Reviewed & Not Pertinent Patient has suicidal ideation: No Patient has homicidal ideation: No Neurological Medical History: Reports: Hx Migraine Endocrine Medical History: Reports: Hx Diabetes Mellitus Type 2 - Gestational diabetes Renal/ Medical History: Reports: Hx Pelvic Inflammatory Disease. Denies: Hx Peritoneal Dialysis Psychiatric Medical History: Reports: Hx Anxiety, Hx Depression Past Surgical History: Reports: Hx Cholecystectomy - Immunizations Immunizations up to date: Yes Hx Diphtheria, Pertussis, Tetanus Vaccination: Yes - given today Review of Systems - Review of Systems Notes: Constitutional: Negative for fever. HENT: Negative for sore throat. Eyes: Negative for visual changes. Cardiovascular: Negative for chest pain. Respiratory: Negative for shortness of breath. Gastrointestinal: Positive for perianal pain Genitourinary: Negative for dysuria. Musculoskeletal: Negative for back pain. Skin: Positive for perianal abscess Neurological: Negative for headaches, weakness or numbness. 10 point ROS negative except as marked above and in HPI. Physical Exam - Vital signs Vitals: Temp Pulse Resp BP Pulse Ox 98.2 F 127 H 17 151/90 H 100 09/02/18 17:28 09/02/18 17:28 09/02/18 17:28 09/02/18 17:28 09/02/18 17:28 Interpretation: Hypertensive, Tachycardic Notes: PHYSICAL EXAMINATION: GENERAL: Appears uncomfortable but in no acute distress HEAD: Atraumatic, normocephalic. EYES: Pupils equal round and reactive to light, extraocular movements intact, sclera anicteric, conjunctiva are normal. ENT: nares patent, oropharynx clear without exudates. Moist mucous membranes. NECK: Normal range of motion, supple without lymphadenopathy LUNGS: Breath sounds clear to auscultation bilaterally and equal. No wheezes rales or rhonchi. HEART: Regular rate and rhythm without murmurs ABDOMEN: Soft, morbidly obese abdomen, nontender, normoactive bowel sounds. No guarding, no rebound. No masses appreciated. Rectal: Approximately 2 cm distal to the anal verge there is a 2 x 2 centimeter abscess. Digital rectal examination without bulging into the rectum or evidence of communication via fistulous tract. EXTREMITIES: Normal range of motion, no pitting or edema. No cyanosis. NEUROLOGICAL: No focal neurological deficits. Moves all extremities spontaneously and on command. PSYCH: Anxious, tearful SKIN: Warm, Dry, normal turgor, no rashes or lesions noted. Course - Re-evaluation Re-evalutation: 09/02/18 20:40 Patient presents with a perianal abscess direct rectal involvement on digital rectal exam. Area was anesthetized, incised and drained with approximately 10 cc of purulent expression. Labs obtained in triage, leukocytosis noted which is unsurprising in the context of an abscess. Packing was placed, patient has been advised to follow-up in the surgery clinic given recurrent nature of her symptoms. Has been started on trimethoprim sulfamethoxazole, first dose given here in the emergency department. At this time will discharge with return precautions and follow-up recommendations. Verbal discharge instructions given a the bedside and opportunity for questions given. Medication warnings reviewed. Patient is in agreement with this plan and has verbalized understanding of return precautions and the need for primary care follow-up in the next 24-72 hours. Of note, patient's heart rate was noted to be elevated and has been chronically elevated during her previous visits to the emergency department into the low 110 range. - Vital Signs Vital signs: Temp Pulse Resp BP Pulse Ox 98.2 F 116 H 20 113/60 96 09/02/18 20:55 09/02/18 20:55 09/02/18 20:55 09/02/18 20:55 09/02/18 20:55 - Laboratory Result Diagrams: 09/02/18 18:05 09/02/18 18:05 Laboratory results interpreted by me: 09/02/18 09/02/18 18:05 18:05 WBC 17.8 H Absolute Neutrophils 13.4 H Glucose 141 H Alkaline Phosphatase 127 H Procedures - Incision and Drainage perianal Type: Simple Anesthetic type: 1% Lidocaine mL's of anesthetic: 5 Blade size: 11 I&D procedure: Chlorprep applied Incision Method: Incision made by scalpel Amount/type of drainage: 10 cc purulent Discharge - Discharge Clinical Impression: Perirectal abscess, Morbid obesity Condition: Good Disposition: HOME, SELF-CARE Additional Instructions: You were seen today for a abscess near your anus. This is opened and drained. If the packing does not fall out within the next 24 hours please remove it yourself. Clean the area with soap and water twice daily and keep a dry dressing over the area. Take antibiotic as prescribed. For your pain: Take ibuprofen 600 mg and acetaminophen 1000 mg every 6 hours together as needed for pain. Please follow-up with the listed surgeon within the next 48-72 hours for reassessment of the area and determination of whether or not you would need any additional interventions. Return to the emergency department immediately if you develop a fever greater than 101 F, worsening of your pain, persistent vomiting, are unable to have a bowel movement, unable to urinate, or have any other symptoms that are worrisome to you. Prescriptions: Sulfamethoxazole/Trimethoprim [Bactrim Ds Tablet] 2 tab PO BID #28 tablet Referrals: FELA AVILES PA-C [Primary Care Provider] - Follow up as needed MARCE BELTRÁN MD [ACTIVE STAFF] - 09/04/18
[2018-09-02] MEDS ORDERED: FLUCONAZOLE 100 MG TABLET PO ONE (20:50)
[2018-09-02 21:01] VITALS: BP 113/60
== END 2018-09-02 21:20 | disposition home or self-care (01) ==
LOC: EEVIPCON 17:22 → ER 17:22
DX: K61.1 Rectal abscess (principal); E66.01 Morbid (severe) obesity due to excess calories; Z88.0 Allergy status to penicillin; Z90.49 Acquired absence of other specified parts of digestive tract
CPT/HCPCS: 99283; 96361; 96374; 96375; 36415; 84703; 85025; 80053; 46050; A6266; J1885; J2270; J1170; J3490 ×2; J7030

== ENCOUNTER 2019-04-29 22:04 | Emergency (ER) | payer MEDICAID ==
[2019-04-29] MEDS ORDERED: ONDANSETRON 4 MG TAB.RAPDIS PO ONE (23:22)
[2019-04-29] MEDS ORDERED: IBUPROFEN 800 MG TABLET PO ONE (23:22)
--- NOTE | 2019-04-29 23:23 | ER Document Report ---
ED Medical Screen (RME) - General Chief Complaint: Flu Symptoms Stated Complaint: CHILLS/FEVER/NAUSEA/HEADACHE Time Seen by Provider: 04/29/19 23:20 Primary Care Provider: FELA AVILES PA-C [Primary Care Provider] - Follow up as needed Mode of Arrival: Ambulatory Information source: Patient Notes: 34-year-old female presents emergency department with reports that at approximately 1600 today she woke up with chills body aches and diarrhea. Reports she had diarrhea at least 4-5 times. Complains of nausea but has not vomited. She did not receive her flu vaccine this year. Reports she used to be a diabetic but she is no longer diabetic. I have greeted and performed a rapid initial assessment of this patient. A comprehensive ED assessment and evaluation of the patient, analysis of test results and completion of the medical decision making process will be conducted by additional ED providers. TRAVEL OUTSIDE OF THE [place] IN LAST 30 DAYS: No - Related Data Allergies/Adverse Reactions: cetirizine [From Zyrtec] Allergy (Verified 11/03/17 06:33) penicillin G Allergy (Verified 11/03/17 06:33) penicillin V Allergy (Verified 11/03/17 06:33) Penicillins Allergy (Verified 11/03/17 06:33) pseudoephedrine [From Zyrtec-D] Allergy (Verified 11/03/17 06:33) Past Medical History Neurological Medical History: Reports: Hx Migraine Endocrine Medical History: Reports: Hx Diabetes Mellitus Type 2 - Gestational diabetes Renal/ Medical History: Reports: Hx Pelvic Inflammatory Disease. Denies: Hx Peritoneal Dialysis Psychiatric Medical History: Reports: Hx Anxiety, Hx Depression Past Surgical History: Reports: Hx Cholecystectomy - Immunizations Immunizations up to date: Yes Hx Diphtheria, Pertussis, Tetanus Vaccination: Yes - given today Physical Exam - Vital signs Vitals: Temp Pulse Resp BP Pulse Ox 100.0 F 114 H 20 129/79 H 100 04/29/19 22:47 04/29/19 22:47 04/29/19 22:47 04/29/19 22:47 04/29/19 22:47 Course - Vital Signs Vital signs: Temp Pulse Resp BP Pulse Ox 100.0 F 114 H 20 129/79 H 100 04/29/19 22:47 04/29/19 22:47 04/29/19 22:47 04/29/19 22:47 04/29/19 22:47 Doctor's Discharge - Discharge Referrals: FELA AVILES PA-C [Primary Care Provider] - Follow up as needed
[2019-04-30 00:30] LABS: A TYPE INFLUENZA AG NEGATIVE (NEGATIVE); B INFLUENZA AG NEGATIVE (NEGATIVE)
[2019-04-30] MEDS ORDERED: MONTELUKAST SODIUM 10 MG TABLET PO ONE (02:15)
[2019-04-30] MEDS ORDERED: ONDANSETRON ODT 4 MG TAB (6 TAB/ER DISP) PO PRN (02:16)
--- NOTE | 2019-04-30 02:17 | ER Document Report ---
HPI - HPI Time Seen by Provider: 04/29/19 23:20 Pain Level: 3 Context: Patient is a 34-year-old female who presents to the emergency department with a chief complaint of runny nose, cough, congestion, and general body aches. She did not try to take any medications to help with her symptoms. She has not received her flu vaccine this year. Denies any past medical history. Does not take any medications. - CONSTITUTIONAL Constitutional: REPORTS: Fever, Chills - EENT EENT: REPORTS: Sore Throat, Nasal Drainage-Clear, Congestion. DENIES: Ear Pain, Nasal Drainage-Purulent, Eye problems - NEURO Neurology: REPORTS: Headache - CARDIOVASCULAR Cardiovascular: DENIES: Chest pain - RESPIRATORY Respiratory: REPORTS: Coughing. DENIES: Trouble Breathing - GASTROINTESTINAL Gastrointestinal: REPORTS: Nausea, Diarrhea. DENIES: Abdominal Pain, Patient vomiting - REPRODUCTIVE Reproductive: DENIES: : - DERM Skin Color: Normal Skin Problems: None Past Medical History - General Information source: Patient - Social History Smoking Status: Never Smoker Family History: Reviewed & Not Pertinent Patient has suicidal ideation: No Patient has homicidal ideation: No Neurological Medical History: Reports: Hx Migraine Endocrine Medical History: Reports: Hx Diabetes Mellitus Type 2 - Gestational diabetes Renal/ Medical History: Reports: Hx Pelvic Inflammatory Disease. Denies: Hx Peritoneal Dialysis Psychiatric Medical History: Reports: Hx Anxiety, Hx Depression Past Surgical History: Reports: Hx Cholecystectomy - Immunizations Immunizations up to date: Yes Hx Diphtheria, Pertussis, Tetanus Vaccination: Yes - given today Vertical Provider Document - CONSTITUTIONAL Agree With Documented VS: Yes Exam Limitations: No Limitations General Appearance: No Apparent Distress - INFECTION CONTROL TRAVEL OUTSIDE OF THE [place] IN LAST 30 DAYS: No - HEENT HEENT: Atraumatic, Normocephalic, PERRLA, Pharyngeal Tenderness, Pharyngeal Erythema. negative: Conjuctival Injection, Pharyngeal Exudate, Tympanic Membrane Red, Tympanic Membrane Bulging - NECK Neck: negative: Normal Inspection - RESPIRATORY Respiratory: negative: Breath Sounds Normal, No Respiratory Distress - CARDIOVASCULAR Cardiovascular: Regular Rhythm, Tachycardia Pulses: Normal: Radial - GI/ABDOMEN Gastrointestinal: Abdomen Soft, Abdomen Non-Tender - MUSCULOSKELETAL/EXTREMETIES Musculoskeletal/Extremeties: FROM - NEURO Level of Consciousness: Awake, Alert, Appropriate Motor/Sensory: No Motor Deficit, No Sensory Deficit - DERM Integumentary: Warm, Dry, No Rash Course - Re-evaluation Re-evalutation: 04/30/19 Influenza tests are negative. Presentation is most consistent with a viral upper respiratory infection. Patient is overall well appearance, vitals within normal limits, well-hydrated. Patient denies any headache, neck pain, and has no evidence of meningismus on examination. Lungs are clear bilaterally. No evidence of respiratory distress. Based on clinical exam and history, I do not suspect an acute pneumonia, meningitis, strep pharyngitis, or an acute encephalitis. Will discharge patient with return precautions and followup recommendations. They are in agreement this plan have verbalized understanding return precautions. - Vital Signs Vital signs: Temp Pulse Resp BP Pulse Ox 100.0 F 114 H 20 129/79 H 100 04/29/19 22:47 04/29/19 22:47 04/29/19 22:47 04/29/19 22:47 04/29/19 22:47 Discharge - Discharge Clinical Impression: Body aches, Upper respiratory infection, viral Diarrhea Qualifiers: Diarrhea type: unspecified type Qualified Code(s): R19.7 - Diarrhea, unspecified Condition: Stable Disposition: HOME, SELF-CARE Additional Instructions: You were seen today in the emergency department for a cough, cold chills, and diarrhea. Your symptoms are most consistent with an upper respiratory viral infection. Please take acetaminophen 1000 mg and ibuprofen 600 mg every 6 hours as needed for any body aches or fever. You have been given cetirizine, medication to help with your runny nose. Take 1 tablet every day while you have symptoms. You have also been given Flonase, medication to help with the inflammation in your nose. Place 1 spray to each nostril twice a day. If you develop a fever greater than 100.4 F while on ibuprofen and acetaminophen, develop shortness of breath, difficulty breathing, or any symptoms that are worrisome to you, please return to the emergency department. The diarrhea is too much, you can take [id number] Imodium and take per box directions. Prescriptions: Montelukast Sodium [Singulair 10 mg Tablet] 10 mg PO QHS #30 tablet Fluticasone Propionate [Flonase Nasal [place] 50 Mcg/[place] 16 gm] 2 sprays NASL DAILY #1 inhaler Referrals: FELA AVILES PA-C [Primary Care Provider] - Follow up in 3-5 days
[2019-04-30 02:41] VITALS: BP 132/87
== END 2019-04-30 02:41 | disposition home or self-care (01) ==
LOC: ER 22:04
DX: J06.9 Acute upper respiratory infection, unspecified (principal); B97.89 Other viral agents as the cause of diseases classified elsewhere; R09.89 Other specified symptoms and signs involving the circulatory and respiratory systems; R05 Cough; R50.9 Fever, unspecified; J02.9 Acute pharyngitis, unspecified; R51 Headache; R11.0 Nausea; R19.7 Diarrhea, unspecified; R00.0 Tachycardia, unspecified
CPT/HCPCS: 99284; 87804; J3490; S0119

== ENCOUNTER 2019-08-21 19:04 | Observation (INO) | payer MEDICAID ==
[2019-08-21] MEDS ORDERED: ONDANSETRON HCL INJ/PF 4 MG/2 ML SDV IV ONE (21:40)
[2019-08-21] MEDS ORDERED: HYDROMORPHONE HCL INJ/PF 2 MG/ML AMPULE IV ONE (21:40)
--- NOTE | 2019-08-21 21:42 | ER Document Report ---
ED General - General Chief Complaint: Abscess Stated Complaint: POSS RECTAL ABCESS Time Seen by Provider: 08/21/19 21:02 Notes: Patient is a 34-year-old female who comes to the emergency department for chief complaint of severe developing rectal pain over the past 3 days or so, she states today it has gotten so painful she cannot sit down comfortably. She states that last night she had chills and broke out into a sweat. No recorded fevers. She denies abdominal pain, vomiting, bleeding from the area, discolored discharge, or any other complaints. Patient states that she had an abscess drained around the rectum previously and had been referred to surgery but has never had an operation for an abscess in that location. She has had a c holecystectomy. She denies diabetes. TRAVEL OUTSIDE OF THE [place] IN LAST 30 DAYS: No - Related Data Allergies/Adverse Reactions: cetirizine [From Zyrtec] Allergy (Verified 11/03/17 06:33) iodine Allergy (Verified 08/22/19 04:09) penicillin G Allergy (Verified 11/03/17 06:33) penicillin V Allergy (Verified 11/03/17 06:33) Penicillins Allergy (Verified 11/03/17 06:33) pseudoephedrine [From Zyrtec-D] Allergy (Verified 11/03/17 06:33) shellfish derived Allergy (Verified 08/22/19 04:09) Past Medical History - General Information source: Patient - Social History Smoking Status: Former Smoker Frequency of alcohol use: None Drug Abuse: None Lives with: Family Family History: Reviewed & Not Pertinent Patient has homicidal ideation: No Neurological Medical History: Reports: Hx Migraine Endocrine Medical History: Reports: Hx Diabetes Mellitus Type 2 - Gestational diabetes Renal/ Medical History: Reports: Hx Pelvic Inflammatory Disease. Denies: Hx Peritoneal Dialysis Psychiatric Medical History: Reports: Hx Anxiety, Hx Depression Past Surgical History: Reports: Hx Cholecystectomy - Immunizations Immunizations up to date: Yes Hx Diphtheria, Pertussis, Tetanus Vaccination: Yes - given today Review of Systems - Review of Systems Constitutional: No symptoms reported EENT: No symptoms reported Cardiovascular: No symptoms reported Respiratory: No symptoms reported Gastrointestinal: See HPI Genitourinary: No symptoms reported Female Genitourinary: No symptoms reported Musculoskeletal: No symptoms reported Skin: No symptoms reported Hematologic/Lymphatic: No symptoms reported Neurological/Psychological: No symptoms reported Physical Exam - Vital signs Vitals: Temp Pulse Resp BP Pulse Ox 98.6 F 81 18 137/81 H 96 08/21/19 19:04 08/21/19 19:04 08/21/19 19:04 08/21/19 19:04 08/21/19 19:04 - Notes Notes: GENERAL: Patient uncomfortable in appearance, lying on her side, appears to be in pain HEAD: Normocephalic, atraumatic. EYES: Pupils equal, round, and reactive to light. Extraocular movements intact. ENT: Oral mucosa moist, tongue midline. Oropharynx unremarkable. Airway patent. NECK: Full range of motion. Supple. Trachea midline. No lymphadenopathy. LUNGS: Clear to auscultation bilaterally, no wheezes, rales, or rhonchi. No r espiratory distress. Non-tender chest wall. HEART: Regular rate and rhythm. No murmur ABDOMEN: Soft, non-tender. Non-distended. Bowel sounds present in all 4 quadrants. RECTAL: There is no obvious abscess noted over the buttocks or perianal area, there is tenderness over the left side of the anal area, however on rectal exam there is exquisite tenderness and what appears to be a perianal abscess at approximately the 8 o'clock position. No drainage or bleeding noted. Exam performed with Andria EM at bedside. EXTREMITIES: Moves all 4 extremities spontaneously. No edema, normal radial and dorsalis pedis pulses bilaterally. No cyanosis. BACK: no cervical, thoracic, lumbar midline tenderness. No saddle anesthesia, normal distal neurovascular exam. Moves all extremities in full range of motion. NEUROLOGICAL: Alert and oriented x3. Normal speech. Cranial nerves II through XII grossly intact. Strength 5/5 in all extremities. PSYCH: Normal affect, normal mood. SKIN: Warm, dry, normal turgor. No rashes or lesions noted. Course - Re-evaluation Re-evalutation: CBC shows leukocytosis of 14,000 with elevation of neutrophils but no bandemia. Chemistry unremarkable. test is negative. Patient is afebrile. Patient's examination is very suggestive of a perirectal abscess, discussed with patient, will discuss with surgery. Called and spoke with Dr. Sage, general surgeon, he will come evaluate the patient. Dr. Sage evaluated the patient, he accepts patient to his service. - Vital Signs Vital signs: Temp Pulse Resp BP Pulse Ox 98.0 F 104 H 20 141/70 H 99 08/22/19 03:00 08/22/19 03:00 08/22/19 03:00 08/22/19 03:00 08/22/19 03:00 - Laboratory Result Diagrams: 08/21/19 22:12 08/21/19 22:12 Laboratory results interpreted by me: 08/21/19 08/21/19 22:12 22:12 WBC 14.4 H Hgb 11.9 L Hct 35.6 L Absolute Neuts (auto) 9.8 H Sodium 136.1 L Glucose 140 H Discharge - Discharge Clinical Impression: Perirectal abscess Condition: Stable Disposition: ADMITTED OBSERVATION Admitting Provider: Surgicalist Unit Admitted: Surgical Floor
[2019-08-21 22:26] LABS: ABSOLUTE BASOPHILS # (AUTO) 0.1 10^3/uL (0.0-0.2); ABSOLUTE EOSINOPHILS # (AUTO) 0.2 10^3/uL (0.0-0.6); ABSOLUTE LYMPHOCYTES (AUTO) 3.4 10^3/uL (0.5-4.7); ABSOLUTE MONOCYTES (AUTO) 0.8 10^3/uL (0.1-1.4); ABSOLUTE NEUT (AUTO) 9.8 10^3/uL (1.7-8.2); BASOPHILS % (AUTO) 0.8 % (0-2); EOSINOPHILS % (AUTO) 1.1 % (0-6); HEMATOCRIT 35.6 % (36.0-47.0); HEMOGLOBIN 11.9 g/dL (12.0-15.5); MEAN CORPUSCULAR HEMOGLOBIN 28.5 pg (27.0-33.4); MEAN CORPUSCULAR HGB CONC 33.4 g/dL (32.0-36.0); MEAN CORPUSCULAR VOLUME 85 fl (80-97); MONOCYTES % (AUTO) 5.6 % (3-13); PLATELET COUNT 358 10^3/uL (150-450); RED BLOOD COUNT 4.18 10^6/uL (3.72-5.28); SEGMENTED NEUTROPHILS % (AUTO) 68.5 % (42-78); TOTAL CELLS COUNTED % (AUTO) 100 %; WHITE BLOOD COUNT 14.4 10^3/uL (4.0-10.5)
[2019-08-21 22:49] LABS: ALBUMIN 3.6 g/dL (3.5-5.0); ALKALINE PHOSPHATASE 113 U/L (38-126); ANION GAP 7 (5-19); ASPARTATE AMINO TRANSFERASE 16 U/L (14-36); BILIRUBIN,TOTAL 0.2 mg/dL (0.2-1.3); BLOOD UREA NITROGEN 9 mg/dL (7-20); CALCIUM 8.9 mg/dL (8.4-10.2); CARBON DIOXIDE 26 mmol/L (22-30); CHLORIDE 103 mmol/L (98-107); GLUCOSE 140 mg/dL (75-110); POTASSIUM 3.8 mmol/L (3.6-5.0); TOTAL PROTEIN 7.4 g/dL (6.3-8.2)
[2019-08-22] MEDS ORDERED: ONDANSETRON HCL INJ/PF 4 MG/2 ML SDV IV PRN (00:07)
[2019-08-22] MEDS ORDERED: DEXTROSE 5%-LACTATED RINGERS 1,000 ML IV PRN (00:07)
--- NOTE | 2019-08-22 00:25 | PDOC H&P ---
History of Present Illness Admission Date/PCP: FELA AVILES PA-C Patient complains of: rectal pain History of Present Illness: EMILY OLMOS is a 34 year old female with a 3 to 4-day history of rectal pain and swelling. The patient reports that it is excessively painful to have a bowel movement. She has a history of recurrent perianal/perirectal abscesses in the past. She cannot recall if her symptoms have recurred in the same area or not. Patient denies a personal history or family history of Crohn's disease/ulcerative colitis. She denies hematochezia, melena, diarrhea, constipation, abdominal pain, chest pain, shortness of breath, nausea, vomiting, dizziness, orthostasis, malaise, fatigue, blurry vision, sore throat, cough. She does report 10 out of 10 rectal pain that is sharp/stabbing in nature. It is unrelenting. It does not radiate. Nothing makes it better. Movement and palpation make it worse. Past Medical History Neurological Medical History: Reports: Migraine Endocrine Medical History: Reports: Gestational Diabetes Psychiatric Medical History: Reports: Depression Past Surgical History Past Surgical History: Reports: Cholecystectomy, Orthopedic Surgery Social History Smoking Status: Former Smoker Hx Recreational Drug Use: No Hx Prescription Drug Abuse: No Family History Family History: Reviewed & Not Pertinent Parental Family History Reviewed: Yes Children Family History Reviewed: Yes Sibling(s) Family History Reviewed.: Yes Medication/Allergy Home Medications: Vit/Iron Fum/Folic AC [ Tablet] 1 tab PO DAILY 06/11/17 Bupropion HCl [Wellbutrin Sr 150 mg Tablet] 1 tab PO DAILY #30 tablet.sa 11/05/17 Ibuprofen [Motrin 800 mg Tablet] 800 mg PO Q8HP PRN #60 tablet 11/05/17 Sulfamethoxazole/Trimethoprim [Bactrim Ds Tablet] 2 tab PO BID #28 tablet 09/02/18 Fluticasone Propionate [Flonase Nasal [place] 50 Mcg/[place] 16 gm] 2 sprays NASL DAILY #1 inhaler 04/30/19 Montelukast Sodium [Singulair 10 mg Tablet] 10 mg PO QHS #30 tablet 04/30/19 Allergies/Adverse Reactions: cetirizine [From Zyrte] Allergy (Verified 11/03/17 06:33) penicillin G Allergy (Verified 11/03/17 06:33) penicillin V Allergy (Verified 11/03/17 06:33) Penicillins Allergy (Verified 11/03/17 06:33) pseudoephedrine [From Zyrtec-D] Allergy (Verified 11/03/17 06:33) Review of Systems Constitutional: PRESENT: chills. ABSENT: anorexia, fatigue, headache(s), weakness Eyes: ABSENT: visual disturbances Ears: ABSENT: hearing changes Nose, Mouth, and Throat: ABSENT: sore throat Cardiovascular: ABSENT: chest pain Respiratory: ABSENT: cough, dyspnea Gastrointestinal: PRESENT: other - Rectal pain. ABSENT: abdominal pain, bloating, constipation, diarrhea, hematemesis, hematochezia, melena, nausea, vomiting Genitourinary: ABSENT: dysuria Musculoskeletal: ABSENT: back pain Integumentary: ABSENT: pruritus, rash Neurological: ABSENT: confusion, convulsions, dizziness Psychiatric: PRESENT: anxiety, depression Hematologic/Lymphatic: ABSENT: easy bleeding, easy bruising Physical Exam Vital Signs: Temp Pulse Resp BP Pulse Ox 98.6 F 81 18 137/81 H 96 08/21/19 19:04 08/21/19 19:04 08/21/19 19:04 08/21/19 19:04 08/21/19 19:04 Intake & Output 08/20/19 08/21/19 08/22/19 06:59 06:59 06:59 Weight 127.006 kg General appearance: PRESENT: mild distress - Rectal pain, morbidly obese Head exam: PRESENT: atraumatic, normocephalic Eye exam: PRESENT: EOMI, PERRLA. ABSENT: scleral icterus Mouth exam: PRESENT: moist, neck supple Neck exam: ABSENT: meningismus, tenderness, thyromegaly, tracheal deviation Respiratory exam: PRESENT: unlabored. ABSENT: chest wall tenderness, tachypnea, wheezes Cardiovascular exam: ABSENT: tachycardia Vascular exam: PRESENT: normal capillary refill GI/Abdominal exam: PRESENT: soft. ABSENT: distended, rebound, tenderness Rectal exam: PRESENT: normal rectal tone, tenderness, other - Full ness/fluctuance at the 9 o'clock position (on the left) internally. No external fluctuance or fullness. Significant tenderness to palpation.. ABSENT: hemorrhoids, laceration Extremities exam: ABSENT: clubbing Musculoskeletal exam: ABSENT: deformity Neurological exam: PRESENT: alert, awake, oriented to person, oriented to place, oriented to time, oriented to situation, CN II-XII grossly intact Psychiatric exam: PRESENT: anxious Focused psych exam: ABSENT: delusional Skin exam: ABSENT: cyanosis, erythema, jaundice Results Laboratory Results: 08/21/19 22:12 08/21/19 22:12 08/21/19 08/21/19 08/21/19 22:12 22:12 22:12 WBC 14.4 H RBC 4.18 Hgb 11.9 L Hct 35.6 L MCV 85 MCH 28.5 MCHC 33.4 RDW 14.0 Plt Count 358 Seg Neutrophils % 68.5 Sodium 136.1 L Potassium 3.8 Chloride 103 Carbon Dioxide 26 Anion Gap 7 BUN 9 Creatinine 0.55 Est GFR ( Amer) > 60 Glucose 140 H Calcium 8.9 Total Bilirubin 0.2 AST 16 Alkaline Phosphatase 113 Total Protein 7.4 Albumin 3.6 Serum HCG, Qual NEGATIVE Assessment & Plan - Diagnosis (1) Perirectal abscess Is this a current diagnosis for this admission?: Yes - Plan Summary Plan Summary: This is a 34-year-old female with a recurrent perirectal abscess. She has no obvious external opening. She has extreme tenderness, fluctuance, and fullness at the left lateral position on digital rectal exam. I will start her on intravenous antibiotics and IV fluids. She is currently drinking water. I will make her n.p.o. in anticipation for rectal exam under anesthesia and drainage of her perirectal abscess tomorrow. Risks/benefits discussed, informed consent obtained, and all questions answered.
[2019-08-22] MEDS: KETOROLAC TROMETHAMINE INJ/PF 30 MG/1 ML SDV IV SCH ×3 (01:00→15:13)
[2019-08-22] MEDS ORDERED: CIPROFLOXACIN 400 MG/D5W RTU 400 MG/200 ML RTUPB IV ONE (01:00)
[2019-08-22] MEDS: METRONIDAZOLE 500 MG/NS RTU 500 MG/100 ML RTUPB IV SCH ×3 (02:07→19:13)
[2019-08-22] MEDS: MORPHINE SULFATE 10 MG/ML INJ IV PRN ×2 (03:46→10:46)
[2019-08-22] MEDS ORDERED: KETOROLAC TROMETHAMINE INJ/PF 30 MG/1 ML SDV IV SCH (06:00)
[2019-08-22] MEDS ORDERED: LIDOCAINE 0.5% INJ-PF (5 MG/ML) 50 ML SDV ONE (06:29)
[2019-08-22] MEDS ORDERED: MIDAZOLAM 2 MG/2 ML INJ ONE ×2 (06:30→11:17)
[2019-08-22] MEDS ORDERED: KETAMINE HCL INJ 500 MG/10 ML VIAL ONE (06:30)
[2019-08-22] MEDS ORDERED: FENTANYL CITRATE INJ/PF 100 MCG/2 ML AMPUL ONE ×2 (06:30→11:16)
[2019-08-22] MEDS ORDERED: PROPOFOL INJ 200 MG/20 ML VIAL IV ONE ×2 (06:31→11:17)
[2019-08-22] MEDS ORDERED: ONDANSETRON HCL INJ/PF 4 MG/2 ML SDV ONE ×2 (06:31→13:56)
[2019-08-22] MEDS ORDERED: DEXAMETHASONE SOD PHOSPHATE INJ 4 MG/1 ML VIAL ONE ×2 (06:31→13:56)
[2019-08-22] MEDS ORDERED: FAMOTIDINE INJ/PF 20 MG/2 ML SDV IV SCH (10:00)
[2019-08-22] MEDS ORDERED: CIPROFLOXACIN 400 MG/D5W RTU 400 MG/200 ML RTUPB IV SCH (10:00)
[2019-08-22] MEDS: DOCUSATE SODIUM 100 MG CAPSULE PO SCH ×2 (10:31→19:12)
[2019-08-22] MEDS ORDERED: BUPIVACAINE HCL 0.5%-EPI 1:200000 INJ/PF 30 ML VIAL ONE (11:22)
[2019-08-22] MEDS ORDERED: OXYCODONE-ACETAMINOPHEN 5-325 MG TABLET PO PRN ×2 (12:33)
[2019-08-22] MEDS ORDERED: DIPHENHYDRAMINE HCL 50 MG/ML VIAL IV PRN (12:33)
[2019-08-22] MEDS ORDERED: FENTANYL CITRATE INJ/PF 100 MCG/2 ML AMPUL IV PRN ×3 (12:33)
[2019-08-22] MEDS ORDERED: MEPERIDINE HCL/PF INJ 25 MG/1 ML DISP.SYRIN IV PRN (12:33)
[2019-08-22] MEDS ORDERED: MORPHINE SULFATE 10 MG/ML INJ IV PRN (12:33)
[2019-08-22] MEDS ORDERED: PROMETHAZINE HCL INJ 25 MG/1 ML VIAL IV PRN (12:33)
--- NOTE | 2019-08-22 12:38 | Operative Report ---
Nonrecallable Operative Report DATE OF SURGERY: 08/22/19 PREOPERATIVE DIAGNOSIS: Perirectal abscess POSTOPERATIVE DIAGNOSIS: Perirectal abscess OPERATION: Incision and drainage of perirectal abscess SURGEON: KEVYN BULLARD 1ST CASING CREW: EMILY ELLINGTON ANESTHESIA: GA TISSUE REMOVED OR ALTERED: None COMPLICATIONS: None ESTIMATED BLOOD LOSS: 5 cc INTRAOPERATIVE FINDINGS: Moderate sized abscess cavity at the 5 o'clock position while the patient is in a supine position PROCEDURE: Patient was brought to the operating Olivia in stable condition placed in the upper table supine position induced under general anesthesia intubated. She was then placed up in a high lithotomy position. After appropriate timeout and site verification the procedure commenced. Digital examination of the rectum revealed a fairly large palpable abscess at the 5 o'clock position while she was in a supine position it was intersphincteric and it was pointing on the ascencion- rectum approximately 2 cm lateral to the anal verge. Upon palpation of it some punctate drainage was noted at the skin at the anal verge. This was enlarged with a Erlinda clamp and large amount of pus drained from the abscess cavity approximately 40 cc of creamy jim pus exuded from the perirectal abscess. A small incision was made directly over the pointing portion of the abscess and was enlarged with a Erlinda clamp. After complete drainage it was irrigated with normal saline suctioned dry. Hemostasis is intact it was then packed with a iodoform gauze packing. This completed the procedure. Patient was then returned to recovery room in stable condition. Estimated blood loss was less than 5 cc. Sponge and needle counts were correct x2.
--- NOTE | 2019-08-22 12:48 | PDOC DISCHARGE SUMMARY ---
General - Admit/Disc Date/PCP Admission Date/Primary Care Provider: 08/22/19 00:27 FELA AVILES PA-C Discharge Date: 08/22/19 - Discharge Diagnosis Final Diagnosis: Perirectal abscess - Assessment Summary: Patient was admitted with a perirectal abscess. She was taken to the operating room on 08/22/2019 for a incision and drainage of her perirectal abscess. She tolerated the procedure well the wound was packed with iodoform gauze. The patient was instructed to remove the gauze the following day at home in the shower. And then start sitz bath at home. She will be given an appointment in the surgical clinic in 7 to 10 days. - Additional Information Referrals: FELA AVILES PA-C [Primary Care Provider] - Follow up as needed Prescriptions: Docusate Sodium [Colace 100 mg Capsule] 100 mg PO DAILY #100 capsule Hydrocodone/Acetaminophen [[place] 10-325 mg Tablet] 1 tab PO Q6HP PRN #15 tablet PRN Reason: Home Medications: Docusate Sodium [[place] 100 mg Capsule] 100 mg PO DAILY #100 capsule 08/22/19 Hydrocodone/Acetaminophen [[place] 10-325 mg Tablet] 1 tab PO Q6HP PRN #15 tablet 08/22/19 History of Present Illiness History of Present Illness: EMILY OLMOS is a 34 year old female Physical Exam Vital Signs: Temp Pulse Resp BP Pulse Ox 98.2 F 101 H 16 115/57 L 100 08/22/19 08:00 08/22/19 08:00 08/22/19 08:00 08/22/19 08:00 08/22/19 08:00 Intake & Output 08/21/19 08/22/19 08/23/19 06:59 06:59 06:59 Intake Total 300 Output Total 0 Balance 300 Weight 124.1 kg Results Laboratory Results: WBC 14.4 10^3/uL (4.0-10.5) H 08/21/19 22:12 RBC 4.18 10^6/uL (3.72-5.28) 08/21/19 22:12 Hgb 11.9 g/dL (12.0-15.5) L 08/21/19 22:12 Hct 35.6 % (36.0-47.0) L 08/21/19 22:12 MCV 85 fl (80-97) 08/21/19 22:12 MCH 28.5 pg (27.0-33.4) 08/21/19 22:12 MCHC 33.4 g/dL (32.0-36.0) 08/21/19 22:12 RDW 14.0 % (11.5-14.0) 08/21/19 22:12 Plt Count 358 10^3/uL (150-450) 08/21/19 22:12 Lymph % (Auto) 24.0 % (13-45) 08/21/19 22:12 [place] % (Auto) 5.6 % (3-13) 08/21/19 22:12 Eos % (Auto) 1.1 % (0-6) 08/21/19 22:12 Baso % (Auto) 0.8 % (0-2) 08/21/19 22:12 Absolute Neuts (auto) 9.8 10^3/uL (1.7-8.2) H 08/21/19 22:12 Absolute Lymphs (auto) 3.4 10^3/uL (0.5-4.7) 08/21/19 22:12 Absolute Monos (auto) 0.8 10^3/uL (0.1-1.4) 08/21/19 22:12 Absolute Eos (auto) 0.2 10^3/uL (0.0-0.6) 08/21/19 22:12 Absolute Basos (auto) 0.1 10^3/uL (0.0-0.2) 08/21/19 22:12 Seg Neutrophils % 68.5 % (42-78) 08/21/19 22:12 Sodium 136.1 mmol/L (137-145) L 08/21/19 22:12 Potassium 3.8 mmol/L (3.6-5.0) 08/21/19 22:12 Chloride 103 mmol/L (98-107) 08/21/19 22:12 Carbon Dioxide 26 mmol/L (22-30) 08/21/19 22:12 Anion Gap 7 (5-19) 08/21/19 22:12 BUN 9 mg/dL (7-20) 08/21/19 22:12 Creatinine 0.55 mg/dL (0.52-1.25) 08/21/19 22:12 Est GFR ( Amer) > 60 (>60) 08/21/19 22:12 Est GFR (MDRD) Non-Af > 60 (>60) 08/21/19 22:12 Glucose 140 mg/dL (75-110) H 08/21/19 22:12 Calcium 8.9 mg/dL (8.4-10.2) 08/21/19 22:12 Total Bilirubin 0.2 mg/dL (0.2-1.3) 08/21/19 22:12 Direct Bilirubin 0.0 mg/dL (0.0-0.4) 08/21/19 22:12 Neonat Total Bilirubin Not Reportable 08/21/19 22:12 Neonat Direct Bilirubin Not Reportable 08/21/19 22:12 Neonat Indirect Bili Not Reportable 08/21/19 22:12 AST 16 U/L (14-36) 08/21/19 22:12 ALT 17 U/L (<35) 08/21/19 22:12 Alkaline Phosphatase 113 U/L (38-126) 08/21/19 22:12 Total Protein 7.4 g/dL (6.3-8.2) 08/21/19 22:12 Albumin 3.6 g/dL (3.5-5.0) 08/21/19 22:12 Serum HCG, Qual NEGATIVE (NEGATIVE) 08/21/19 22:12 SARS-CoV-2 (PCR) NEGATIVE (NEGATIVE) 08/22/19 00:49
[2019-08-22] MEDS ORDERED: METOCLOPRAMIDE HCL INJ/PF 10 MG/2 ML SDV ONE (13:56)
[2019-08-22] MEDS ORDERED: SUCCINYLCHOLINE CHLORIDE INJ 200 MG/10 ML VIAL ONE (13:56)
[2019-08-22] MEDS ORDERED: KETOROLAC TROMETHAMINE 60 MG/2 ML SDV ONE (13:56)
[2019-08-22 19:35] VITALS: BP 115/57
== END 2019-08-22 19:51 | disposition home or self-care (01) ==
LOC: ER 19:04 → EH 08-22 00:27 → 4S 08-22 02:46
PROVIDERS: ADMIT Surgery; ATTEND Surgery
DX: K61.1 Rectal abscess (principal); F41.9 Anxiety disorder, unspecified; F32.9 Major depressive disorder, single episode, unspecified; E66.01 Morbid (severe) obesity due to excess calories; Z79.899 Other long term (current) drug therapy; Z87.891 Personal history of nicotine dependence; Z03.818 Encounter for observation for suspected exposure to other biological agents ruled out; Z90.49 Acquired absence of other specified parts of digestive tract
CPT/HCPCS: 99284; 96374; 96375; 36415; 87040; 84703; 85025; 87635; 87077; 80053; 87186; 87150 ×26; 00902; 46040; J2250; J1100; J1885 ×2; J3010; J3490 ×2; J2765; J2270; J1170; J0330; J2405 ×2; J7121; J2704; J0744; S0028; 902

== ENCOUNTER 2019-12-13 05:30 | Day surgery (SDC) | payer MEDICAID ==
[2019-12-07 10:10] LABS: HEMATOCRIT 35.5 % (36.0-47.0); HEMOGLOBIN 12.1 g/dL (12.0-15.5); MEAN CORPUSCULAR HEMOGLOBIN 28.4 pg (27.0-33.4); MEAN CORPUSCULAR VOLUME 84 fl (80-97); PLATELET COUNT 389 10^3/uL (150-450); RED BLOOD COUNT 4.25 10^6/uL (3.72-5.28); RED CELL DISTRIBUTION WIDTH 14.1 % (11.5-14.0); WHITE BLOOD COUNT 8.5 10^3/uL (4.0-10.5)
[2019-12-07 10:21] LABS: APPEARANCE,URINE CLOUDY; BILIRUBIN,URINE NEGATIVE (NEGATIVE); COLOR,URINE DARK YELLOW; GLUCOSE, URINE NEGATIVE (NEGATIVE); KETONES,URINE NEGATIVE (NEGATIVE); LEUKOCYTE ESTERASE,URINE SMALL (NEGATIVE); NITRITE,URINE NEGATIVE (NEGATIVE); PROTEIN,URINE 100 mg/dL (NEGATIVE); UROBILINOGEN,URINE NEGATIVE mg/dL (<2.0)
[2019-12-07 10:38] LABS: ALBUMIN 3.7 g/dL (3.5-5.0); ALKALINE PHOSPHATASE 103 U/L (38-126); ANION GAP 10 (5-19); ASPARTATE AMINO TRANSFERASE 17 U/L (14-36); BILIRUBIN,DIRECT 0.3 mg/dL (0.0-0.4); BILIRUBIN,TOTAL 0.4 mg/dL (0.2-1.3); BLOOD UREA NITROGEN 7 mg/dL (7-20); CALCIUM 9.2 mg/dL (8.4-10.2); CARBON DIOXIDE 24 mmol/L (22-30); CHLORIDE 107 mmol/L (98-107); GLUCOSE 130 mg/dL (75-110); POTASSIUM 4.2 mmol/L (3.6-5.0); TOTAL PROTEIN 7.1 g/dL (6.3-8.2)
[~2019-12-13 05:30] MED LIST: CLINDAMYCIN 900 MG/D5W RTU 900 MG/50 ML RTUPB IV ONE; CLINDAMYCIN 900 MG/D5W RTU 900 MG/50 ML RTUPB IV PRN; GENTAMICIN SULFATE 120 MG in DEXTROSE 5%-WATER 100 ML IV PRN; LACTATED RINGERS 1000 ML IV PRN; LIDOCAINE 0.5% INJ-PF (5 MG/ML) 50 ML SDV SUBCUT PRN
[2019-12-13] MEDS ORDERED: FENTANYL CITRATE INJ/PF 250 MCG/5 ML AMPULE ONE (07:15)
[2019-12-13] MEDS ORDERED: MIDAZOLAM 2 MG/2 ML INJ ONE (07:16)
[2019-12-13] MEDS ORDERED: MORPHINE SULFATE 10 MG/ML INJ ONE (07:16)
[2019-12-13] MEDS ORDERED: PROPOFOL INJ 200 MG/20 ML VIAL IV ONE (07:16)
[2019-12-13] MEDS ORDERED: DIPHENHYDRAMINE HCL 50 MG/ML VIAL IV PRN (09:19)
[2019-12-13] MEDS ORDERED: MEPERIDINE HCL/PF INJ 25 MG/1 ML DISP.SYRIN IV PRN (09:19)
[2019-12-13] MEDS ORDERED: FENTANYL CITRATE INJ/PF 100 MCG/2 ML AMPUL IV PRN (09:19)
[2019-12-13] MEDS ORDERED: MORPHINE SULFATE 10 MG/ML INJ IV PRN ×2 (09:19→09:53)
[2019-12-13] MEDS ORDERED: PROMETHAZINE HCL INJ 25 MG/1 ML VIAL IV PRN ×2 (09:19→09:53)
[2019-12-13] MEDS ORDERED: ACETAMINOPHEN 1,000 MG/100 ML RTUPB IV PRN (09:53)
[2019-12-13] MEDS ORDERED: SIMETHICONE 80 MG TAB.CHEW PO PRN (09:53)
[2019-12-13] MEDS ORDERED: OXYCODONE-ACETAMINOPHEN 5-325 MG TABLET PO PRN ×2 (09:53)
[2019-12-13] MEDS ORDERED: ACETAMINOPHEN 325 MG TABLET PO PRN (09:53)
[2019-12-13] MEDS ORDERED: RINGERS SOLUTION,LACTATED 1,000 ML IV PRN (09:53)
--- NOTE | 2019-12-13 10:19 | Operative Report ---
Operative Report DATE OF SURGERY: 12/13/19 PREOPERATIVE DIAGNOSIS: abnormal uterine bleeding, pelvic pain, anemia, leiomy jerrod, adenomyosis POSTOPERATIVE DIAGNOSIS: same OPERATION: Robotic assisted laparoscopic hysterectomy with bilateral salpingectomy and lysis of adhesions SURGEON: GABRIELA POSEY ANESTHESIA: GA TISSUE REMOVED OR ALTERED: Uterus cervix bilateral fallopian tubes COMPLICATIONS: None ESTIMATED BLOOD LOSS: 100 cc INTRAOPERATIVE FINDINGS: 12-week uterus with evidence of adenomyosis and leiomyoma within the arceo of the uterus, multiple omental adhesions to the anterior abdominal wall at the umbilicus PROCEDURE: Patient was taken to the operating room prepared and draped in normal sterile fashion in dorsolithotomy position. Under sterile conditions a Horn catheter was placed to gravity. Speculum was placed into the vagina and the cervix was grasped on the anterior lip with a single-tooth tenaculum. The cervix was then dilated to accommodate a medium V care uterine manipulator. Manipulate it was placed gloves were changed and attention was turned to the upper portion of the case. A 2-1/2 cm umbilical skin incision was made 11 blade and this was carried through to the underlying layer of fascia with the same 11 blade. It was grasped to Jose's acted with Tyler's. New cavity was entered bluntly. A GelPort was placed in a normal fashion the camera port and air seal in the appropriate locations. Key was then inflated with approximately 2 L of CO2 gas. The ca jose was then introduced into the peritoneal cavity through the camera port and the patient was placed in steep Trendelenburg. The above findings were noted. Under direct visualization two 5 mm ports were placed approximately 10 cm on either side of the umbilicus. The omental adhesions were dissected bluntly using an atraumatic grasper. the robot was then docked with the vessel sealer placed on the patient's left and the monopolar scissors placed placed on the patient's right. I then unscrubbed and set at the robotic console beginning with the left adnexa fallopian tube was transected from the uterus using the vessel sealer and monopolar scissors as needed. The fallopian tube was then removed through the assistance port. The ovarian ligament was then transected using the vessel sealer. The uterine artery was skeletonized using blunt dissection and ligated using the vessel sealer down to the level of the external cervical os. The bladder flap was then begun using monopolar scissors and blunt dissection over the V care cup noted through the mucosa. Attention was then turned to the right adnexa where the fallopian tube was transected in a similar fashion. The utero- ovarian ligament was transected using the vessel sealer. The Uterine artery was then transected using the vessel sealer and skeletonized using blunt dissection. The vessel sealer was again used to completely transect the uterine artery down to the level of the external cervical os. The bladder flap was completed using similar sharp and blunt dissection. Once the bladder was felt to be adequately away from the lower uterine segment, the colpotomy was begun on the anterior aspect of the cervix following the outline of the V care cup mucosa. The cup was followed in a circumferential fashion completely around the cervix estimate was completely freed. The specimen was then removed through the vaginal defect. The instruments were then changed to a Constantine needle flatbed truck driver and pro-grasp. AV lock needle was introduced through the assistance port. The lock needle was used to close the vaginal cuff and hemostasis. The needle was then removed through the assistance port. The peritoneal cavity was carefully inspected the ureters were noted to both be peristalsing and there was no signs of hydroureter. The robot was then undocked. The fascia was closed at the umbilical skin incision seen 0 Vicryl 3 skin incisions were closed using 4-0 Vicryl. Sponge lap and needle counts were correct x2 and the patient was taken to recovery in stable condition.
[2019-12-13] MEDS: MORPHINE SULFATE 10 MG/ML INJ ONE ×2 (10:47→10:52)
[2019-12-13] MEDS: KETOROLAC TROMETHAMINE INJ/PF 30 MG/1 ML SDV IV SCH ×2 (14:28→21:16)
[2019-12-13] MEDS ORDERED: GLYCOPYRROLATE 1 MG/5 ML VIAL ONE (15:42)
[2019-12-13] MEDS ORDERED: ESMOLOL HCL INJ/PF 100 MG/10 ML SDV IV ONE (15:42)
[2019-12-13] MEDS ORDERED: KETOROLAC TROMETHAMINE 60 MG/2 ML SDV ONE (15:42)
[2019-12-13] MEDS ORDERED: NEOSTIGMINE METHYLSULFATE 10 MG/10 ML VIAL ONE (15:42)
[2019-12-13] MEDS ORDERED: DEXAMETHASONE SOD PHOSPHATE INJ 4 MG/1 ML VIAL ONE (15:42)
[2019-12-13] MEDS ORDERED: ONDANSETRON HCL INJ/PF 4 MG/2 ML SDV ONE (15:42)
[2019-12-13] MEDS ORDERED: METOPROLOL TARTRATE PF/INJ 5 MG/5 ML SDV IV ONE (15:42)
[2019-12-13] MEDS ORDERED: ROCURONIUM BROMIDE INJ 50 MG/5 ML VIAL IV ONE (15:42)
[2019-12-13] MEDS ORDERED: LIDOCAINE 2% INJ-PF (20 MG/ML) 2 ML AMPUL ONE (15:42)
[2019-12-13] MEDS: DOCUSATE SODIUM 100 MG CAPSULE PO SCH (17:35)
[2019-12-14] MEDS: KETOROLAC TROMETHAMINE INJ/PF 30 MG/1 ML SDV IV SCH (05:19)
[2019-12-14 07:16] LABS: HEMATOCRIT 31.9 % (36.0-47.0); HEMOGLOBIN 10.8 g/dL (12.0-15.5); MEAN CORPUSCULAR HEMOGLOBIN 28.2 pg (27.0-33.4); MEAN CORPUSCULAR HGB CONC 33.9 g/dL (32.0-36.0); MEAN CORPUSCULAR VOLUME 83 fl (80-97); PLATELET COUNT 365 10^3/uL (150-450); RED BLOOD COUNT 3.84 10^6/uL (3.72-5.28); RED CELL DISTRIBUTION WIDTH 14.3 % (11.5-14.0); WHITE BLOOD COUNT 11.9 10^3/uL (4.0-10.5)
--- NOTE | 2019-12-14 07:43 | PDOC DISCHARGE SUMMARY ---
Impression - Admit/DC Date/PCP Admission Date/Primary Care Provider: FELA AVILES PA-C Discharge Date: 12/14/19 - Discharge Diagnosis (1) Abnormal uterine and vaginal bleeding, unspecified Is this a current diagnosis for this admission?: Yes (2) Pelvic pain Is this a current diagnosis for this admission?: Yes (3) Fibroids, intramural Is this a current diagnosis for this admission?: Yes - Assessment Summary: patient underwent a RATLH w/ b/l salpingectomy. She has had an unremarkable postoperative course is voiding and tolerating regular diet. she complains of dysuria that is mild. WBC is slightly elevated so will give IV dose of clindamycin and send home on bactrim - Additional Information Resuscitation Status: Full Code Discharge Diet: As Tolerated Discharge Activity: Balance Activity w/Rest, No Lifting Over 10 Pounds, No Lifting/Push/Pulling, Pelvic Rest, No tub bath, Walk Frequently Referrals: GABREILA POSEY MD [ACTIVE STAFF] - 12/28/19 11:00 am (CALL THE OFFICE FOR QUESTIONS OR CONCERNS.) FELA AVILES PA-C [Primary Care Provider] - Prescriptions: Oxycodone HCl/Acetaminophen [Percocet 5-325 mg Tablet] 1 tab PO Q4HP PRN #30 tablet PRN Reason: Sulfamethoxazole/Trimethoprim [Bactrim Ds Tablet] 1 each PO BID #10 tablet Ibuprofen [Motrin 800 mg Tablet] 800 mg PO Q6 #60 tablet Home Medications: Hydrocodone/Acetaminophen [Conover 10-325 mg Tablet] 1 tab PO Q6HP PRN #15 tablet 08/22/19 Omeprazole 20 mg PO DAILY 12/07/19 Sumatriptan Succinate [Imitrex 50 mg Tablet] 50 mg PO ASDIR PRN 12/07/19 Topiramate [Topamax] 25 mg PO DAILY 12/07/19 Ibuprofen [Motrin 800 mg Tablet] 800 mg PO Q6 #60 tablet 12/14/19 Oxycodone HCl/Acetaminophen [Percocet 5-325 mg Tablet] 1 tab PO Q4HP PRN #30 ta blet 12/14/19 Sulfamethoxazole/Trimethoprim [Bactrim Ds Tablet] 1 each PO BID #10 tablet 12/14/19 History of Present Illiness History of Present Illness: EMILY OLMOS is a 34 year old female Physical Exam - Physical Exam Vital Signs: Temp Pulse Resp BP Pulse Ox 98.0 F 94 18 126/63 H 97 12/14/19 00:00 12/14/19 00:00 12/14/19 00:00 12/14/19 00:00 12/14/19 00:00 Intake & Output 12/13/19 12/14/19 12/15/19 06:59 06:59 06:59 Intake Total 0 250 Output Total 1400 Balance 0 -1150 Weight 128.37 kg Results Laboratory Results: WBC 11.9 10^3/uL (4.0-10.5) H 12/14/19 06:43 RBC 3.84 10^6/uL (3.72-5.28) 12/14/19 06:43 Hgb 10.8 g/dL (12.0-15.5) L 12/14/19 06:43 Hct 31.9 % (36.0-47.0) L 12/14/19 06:43 MCV 83 fl (80-97) 12/14/19 06:43 MCH 28.2 pg (27.0-33.4) 12/14/19 06:43 MCHC 33.9 g/dL (32.0-36.0) 12/14/19 06:43 RDW 14.3 % (11.5-14.0) H 12/14/19 06:43 Plt Count 365 10^3/uL (150-450) 12/14/19 06:43 Sodium 141.1 mmol/L (137-145) 12/07/19 09:00 Potassium 4.2 mmol/L (3.6-5.0) 12/07/19 09:00 Chloride 107 mmol/L (98-107) 12/07/19 09:00 Carbon Dioxide 24 mmol/L (22-30) 12/07/19 09:00 Anion Gap 10 (5-19) 12/07/19 09:00 BUN 7 mg/dL (7-20) 12/07/19 09:00 Creatinine 0.56 mg/dL (0.52-1.25) 12/07/19 09:00 Est GFR ( Amer) > 60 (>60) 12/07/19 09:00 Est GFR (MDRD) Non-Af > 60 (>60) 12/07/19 09:00 Glucose 130 mg/dL (75-110) H 12/07/19 09:00 POC Glucose 129 mg/dL (70-110) H 12/13/19 05:56 Calcium 9.2 mg/dL (8.4-10.2) 12/07/19 09:00 Total Bilirubin 0.4 mg/dL (0.2-1.3) 12/07/19 09:00 Direct Bilirubin 0.3 mg/dL (0.0-0.4) 12/07/19 09:00 Neonat Total Bilirubin Not Reportable 12/07/19 09:00 Neonat Direct Bilirubin Not Reportable 12/07/19 09:00 Neonat Indirect Bili Not Reportable 12/07/19 09:00 AST 17 U/L (14-36) 12/07/19 09:00 ALT 14 U/L (<35) 12/07/19 09:00 Alkaline Phosphatase 103 U/L (38-126) 12/07/19 09:00 Total Protein 7.1 g/dL (6.3-8.2) 12/07/19 09:00 Albumin 3.7 g/dL (3.5-5.0) 12/07/19 09:00 Urine Color DARK YELLOW 12/07/19 09:00 Urine Appearance CLOUDY 12/07/19 09:00 Urine pH 5.0 (5.0-9.0) 12/07/19 09:00 Ur Specific Spangle 1.020 12/07/19 09:00 Urine Protein 100 mg/dL (NEGATIVE) H 12/07/19 09:00 Urine Glucose (UA) NEGATIVE mg/dL (NEGATIVE) 12/07/19 09:00 Urine Ketones NEGATIVE mg/dL (NEGATIVE) 12/07/19 09:00 Urine Blood LARGE (NEGATIVE) H 12/07/19 09:00 Urine Nitrite NEGATIVE (NEGATIVE) 12/07/19 09:00 Urine Bilirubin NEGATIVE (NEGATIVE) 12/07/19 09:00 Urine Urobilinogen NEGATIVE mg/dL (<2.0) 12/07/19 09:00 Ur Leukocyte Esterase SMALL (NEGATIVE) H 12/07/19 09:00 Urine WBC (Auto) 17 /HPF 12/07/19 09:00 Urine RBC (Auto) 8 /HPF 12/07/19 09:00 Urine Bacteria (Auto) TRACE /HPF 12/07/19 09:00 Squamous Epi Cells Auto 35 /HPF 12/07/19 09:00 Urine Mucus (Auto) MANY /LPF 12/07/19 09:00 Urine Ascorbic Acid NEGATIVE (NEGATIVE) 12/07/19 09:00 Urine HCG, Qual NEGATIVE (NEGATIVE) 12/13/19 05:35 COVID-19 Source NASOPHARYNGEAL 12/07/19 08:49 COVID-19 (FLOR) NOT DETECTED 12/07/19 08:49 Blood Type A POSITIVE 12/07/19 09:00 Antibody Screen NEGATIVE 12/07/19 09:00 Stroke Is this a Stroke Patient?: No Acute Heart Failure Is this a Heart Failure Patient?: No
[2019-12-14] MEDS ORDERED: CLINDAMYCIN 900 MG/D5W RTU 900 MG/50 ML RTUPB IV ONE (08:15)
[2019-12-14 08:56] VITALS: BP 131/73
[2019-12-14] MEDS: DOCUSATE SODIUM 100 MG CAPSULE PO SCH (09:09)
[2019-12-14] MEDS ORDERED: FLUCONAZOLE 100 MG TABLET ONE ×2 (10:35→10:37)
[2019-12-14] MEDS ORDERED: FLUCONAZOLE 100 MG TABLET PO ONE (10:45)
[2019-12-14] MEDS ORDERED: IBUPROFEN 800 MG TABLET PO SCH (12:00)
== END 2019-12-14 10:39 | disposition home or self-care (01) ==
LOC: OROUT 05:30 → 2N 11:40 → OROUT 12-14 10:39
PROVIDERS: ATTEND Obstetrics & Gynecology
DX: N93.9 Abnormal uterine and vaginal bleeding, unspecified (principal); D25.1 Intramural leiomyoma of uterus; N87.0 Mild cervical dysplasia; N80.3 Endometriosis of pelvic peritoneum; N80.5 Endometriosis of intestine; N73.6 Female pelvic peritoneal adhesions (postinfective); K21.9 Gastro-esophageal reflux disease without esophagitis; R10.2 Pelvic and perineal pain; F17.210 Nicotine dependence, cigarettes, uncomplicated; R30.0 Dysuria; D72.829 Elevated white blood cell count, unspecified; G43.909 Migraine, unspecified, not intractable, without status migrainosus; Z03.818 Encounter for observation for suspected exposure to other biological agents ruled out; Z90.49 Acquired absence of other specified parts of digestive tract; Z79.899 Other long term (current) drug therapy
CPT/HCPCS: 86900; 86901; 36415 ×2; 86850; 82962; 85027 ×2; 87635; 81025; 80053; 81001; 88307 ×2; 94799; 00840; 58571; 49329; C1758; A4649; J2250; J3490 ×10; J1100; J1885 ×3; J3010; J1580; J2270; J2710; J2405; J7060; J2704; C9803; 840

== ENCOUNTER → 2020-02-15 | Outpatient (CLI) | payer MEDICAID ==
--- NOTE | 2020-02-15 13:33 | RADIOLOGY REPORT (SQ) ---
EXAM DESCRIPTION: CT ABD/PELVIS WITH IV ORAL IMAGES COMPLETED DATE/TIME: 02/15/2020 1:20 pm REASON FOR STUDY: (R10.13)EPIGASTRIC PAIN;(Z98.890)OTHER SPECIFIED POSTPROCEDURAL STATES R10.13 EPI GASTRIC PAIN Z98.890 OTHER SPECIFIED POSTPROCEDURAL STATES COMPARISON: None. TECHNIQUE: CT scan of the abdomen and pelvis performed using helical scanning technique with dynamic intravenous contrast injection. No oral contrast. Images reviewed with lung, soft tissue, and bone windows. Reconstructed coronal and sagittal MPR images reviewed. Delayed images for evaluation of the urinary system also acquired. All images stored on PACS. All CT scanners at this facility use dose modulation, iterative reconstruction, and/or weight based d osing when appropriate to reduce radiation dose to as low as reasonably achievable (ALARA). [facility]: Dose Right [facility]: CareDose [facility]: Dose Right [facility]: Teradose 4D [facility]: NextPrinciples CONTRAST TYPE AND DOSE: contrast/concentration: Isovue 350.00 mmol/ml; Total Contrast Delivered: 100 .0 ml; Total Saline Delivered: 72.0 ml RENAL FUNCTION: Creatinine 0.6 RADIATION DOSE: CT Rad equipment meets quality standard of care and radiation dose reduction techniq ues were employed. CTDIvol: 21.3 - 28.6 mGy. DLP: 2579 mGy-cm.. LIMITATIONS: None. FINDINGS: LOWER CHEST: No significant findings. No nodules or infiltrates. LIVER: Hepatic steatosis. Hepatomegaly. SPLEEN: Normal size. No focal lesions. PANCREAS: No masses. No significant calcifications. No adjacent inflammation or peripancreatic fluid collections. Pancreatic duct not dilated. GALLBLADDER: Surgically absent. ADRENAL GLANDS: No significant masses or asymmetry. RIGHT KIDNEY AND URETER: No solid masses. No significant calcifications. No hydronephrosis or hyd roureter. LEFT KIDNEY AND URETER: No solid masses. No significant calcifications. No hydronephrosis or hydr oureter. AORTA AND VESSELS: No aneurysm. No dissection. Renal arteries, SMA, celiac without stenosis. RETROPERITONEUM: No retroperitoneal adenopathy, hemorrhage or masses. BOWEL AND PERITONEAL CAVITY: No masses or inflammatory changes. No free fluid or peritoneal masses. APPENDIX: Normal. PELVIS: No mass. No free fluid. Normal bladder. ABDOMINAL WALL: Small umbilical hernia containing omental fat only. BONES: No significant or acute findings. OTHER: No other significant finding. IMPRESSION: Hepatomegaly hand steatosis. No other significant findings. TECHNICAL DOCUMENTATION: JOB ID: [id number] Quality ID # [id number]: Final reports with documentation of one or more dose reduction techniques (e.g., Au tomated exposure control, adjustment of the mA and/or kV according to patient size, use of iterative reconstruction technique) 2010 [employer]- All Rights Reserved Reading location - IP/workstation name: WM
== END ==
LOC: RAD 12:42
PROVIDERS: ATTEND Obstetrics & Gynecology
DX: R10.13 Epigastric pain (principal); K76.0 Fatty (change of) liver, not elsewhere classified; R16.0 Hepatomegaly, not elsewhere classified; Z98.890 Other specified postprocedural states
CPT/HCPCS: 74177; 82565